=== PATIENT | male | born 1940 | race Caucasian/White ===

== ENCOUNTER → 2021-04-03 08:55 | Outpatient (CLI) | payer MEDICARE, SELFPAY ==
[2021-04-03 12:38] LABS: Absolute Lymphocyte Count 2.36 X10^3/uL (0.83-4.51); Absolute Neutrophil Count 4.9 X10^3/uL (2.0-7.7); Basophil# 0.03 X10^3/uL; Basophil% 0.4 % (0-1); Eosinophil# 0.07 X10^3/uL; Eosinophils% 0.9 % (0-5); Hematocrit 50.2 % (40-54); Hemoglobin 16.6 g/dL (13.0-16.5); Lymphocyte # 2.36 X10^3/ul (0.83-4.51); Lymphocyte % 29.9 % (19-41); Mean Corp Hgb Conc 33.1 g/dL (32-36); Mean Corpuscular Hgb 30.3 pg (27.0-32.0); Mean Corpuscular Volume 91.6 fL (80-94); Mean Platelet Vol. 9.2 fl (6.2-12.0); Monocyte# 0.52 X10^3/uL; Monocyte% 6.6 % (0-10); NRBC Flagged by Analyzer 0 % (0-5); Neutrophil % 61.9 % (47-70); Platelet Count 342 K/mm3 (150-450); RBC Distribution Width SD 40.9 fl (35.1-43.9); Red Blood Count 5.48 M/mm3 (4.6-6.2); White Blood Count 7.9 K/mm3 (4.4-11.0)
[2021-04-03 12:58] LABS: ALB/GLOB Ratio 0.9 RATIO (0.9-2.4); AST(SGOT) 12 U/L (15-37); Alanine Aminotransfer ALT/SGPT 23 U/L (16-61); Albumin, Serum 3.8 g/dL (3.2-5.0); Alkaline Phosphatase 69 U/L (45-117); Anion Gap 8 (5-15); BUN 20 mg/dL (7-18); BUN/Creat Ratio 16.8 RATIO (10-20); Chloride 97 mmol/L (98-107); Creatinine, Serum 1.19 mg/dL (0.70-1.30); EST Glomerular Filtration Rate 63 mL/min (>60); Est Glom Filt Rate - Afr Amer 76 mL/min (>60); Globulin 4.1 g/dL (2.2-4.2); Potassium 4.8 mmol/L (3.5-5.1); Protein, Total 7.9 g/dL (6.4-8.2); Sodium Level 133 mmol/L (136-145)
[2021-04-03 12:59] LABS: Glucose 483 mg/dL (74-106)
[2021-04-03 17:34] LABS: Microalbumin,Random Urine < 5.0 mg/L (NO RANGE EST.)
== END ==
PROVIDERS: Nurse Practitioner Family; PCP Family Medicine; Referring Provider Family Medicine; Visit Provider Family Medicine
DX: R63.4 Abnormal weight loss (principal); G89.29 Other chronic pain; M54.2 Cervicalgia; M54.9 Dorsalgia, unspecified; E11.9 Type 2 diabetes mellitus without complications
CPT/HCPCS: 36415; 80053; 82043; 82570; 85025

== ENCOUNTER → 2021-04-23 13:05 | Outpatient (CLI) | payer MEDICARE, SELFPAY ==
[2021-04-23 15:40] LABS: Microalbumin,Random Urine 13.4 mg/L (NO RANGE EST.)
[2021-04-23 15:47] LABS: Hemoglobin A1c 11.1 % (3.8-5.6)
[2021-04-23 15:55] LABS: ALB/GLOB Ratio 0.8 RATIO (0.9-2.4); AST(SGOT) 14 U/L (15-37); Alanine Aminotransfer ALT/SGPT 23 U/L (16-61); Albumin, Serum 3.5 g/dL (3.2-5.0); Alkaline Phosphatase 47 U/L (45-117); Anion Gap 6 (5-15); BUN 23 mg/dL (7-18); BUN/Creat Ratio 25.6 RATIO (10-20); CPK Total, Creatine Kinase 25 U/L (39-308); CRP < 2.90 mg/L (0.0-3.0); Calcium,Total 10.1 mg/dL (8.5-10.1); Chloride 101 mmol/L (98-107); EST Glomerular Filtration Rate 87 mL/min (>60); Est Glom Filt Rate - Afr Amer 105 mL/min (>60); Globulin 4.2 g/dL (2.2-4.2); Glucose 119 mg/dL (74-106); Lipase 71 U/L (73-393); PSA,Total- Diagnostic 1.12 ng/mL (0.0-4.0); Potassium 4.1 mmol/L (3.5-5.1); Protein, Total 7.7 g/dL (6.4-8.2); Sodium Level 137 mmol/L (136-145)
[2021-04-23 16:14] LABS: Erythrocyte Sedimentation Rate 15 mm/hr (0-20)
[2021-04-23 16:17] LABS: Absolute Neutrophil Count 4.4 X10^3/uL (2.0-7.7); Basophil# 0.03 X10^3/uL; Basophil% 0.4 % (0-1); Eosinophil# 0.04 X10^3/uL; Eosinophils% 0.5 % (0-5); Hematocrit 47.3 % (40-54); Hemoglobin 15.4 g/dL (13.0-16.5); Lymphocyte % 34.7 % (19-41); Mean Corp Hgb Conc 32.6 g/dL (32-36); Mean Corpuscular Hgb 29.8 pg (27.0-32.0); Mean Corpuscular Volume 91.5 fL (80-94); Mean Platelet Vol. 8.5 fl (6.2-12.0); Monocyte# 0.61 X10^3/uL; Monocyte% 7.8 % (0-10); NRBC Flagged by Analyzer 0 % (0-5); Neutrophil # 4.38 X10^3/uL (2.7-7.7); Neutrophil % 56.3 % (47-70); Platelet Count 356 K/mm3 (150-450); RBC Distribution Width SD 40.1 fl (35.1-43.9); Red Blood Count 5.17 M/mm3 (4.6-6.2); White Blood Count 7.8 K/mm3 (4.4-11.0)
[2021-04-24 09:45] LABS: PTHIN 41.5 pg/mL (18.4-80.1)
[2021-04-27 13:21] LABS: ANTINUCLEAR ANTIBODIES DIRECT Negative (Negative)
[2021-04-28 14:09] LABS: PROEL- A/G Ratio 1.2 (0.7-1.7); PROEL- Albumin 3.6 g/dL (2.9-4.4); PROEL- Alpha-1 Globulin 0.3 g/dL (0.0-0.4); PROEL- Alpha-2 Globulin 0.8 g/dL (0.4-1.0); PROEL- Beta Globulin 1.1 g/dL (0.7-1.3); PROEL- Gamma Globulin 0.9 g/dL (0.4-1.8); PROEL- Globulin, Total 3.1 g/dL (2.2-3.9); PROEL- TOTAL PROTEIN 6.7 g/dL (6.0-8.5); PROELU- Albumin, Urine 44.2 % (.); PROELU- Alpha-1-Globulin,Ur 0.5 % (.); PROELU- Alpha-2-Globulin,Ur 10.3 % (.); PROELU- Beta Globulin, Ur 23.6 % (.); PROELU- Gamma Globulin, Ur 21.5 % (.); Total Protein, Ur 9.1 mg/dL (Not Estab.)
== END ==
PROVIDERS: PCP Family Medicine; Referring Provider Family Medicine; Visit Provider Family Medicine
DX: R63.4 Abnormal weight loss (principal); M62.81 Muscle weakness (generalized); M54.9 Dorsalgia, unspecified; E11.9 Type 2 diabetes mellitus without complications
CPT/HCPCS: 36415; 80053; 82043; 82550; 83036; 83690; 83970; 84134; 84153; 84165; 84166; 85025; 85652; 86038; 86140

== ENCOUNTER 2021-05-19 09:00 | Outpatient (RCR) | payer MEDICARE, SELFPAY ==
--- NOTE | 2021-05-05 12:03 | HP.PTEVAL_ITS ---
Patient's Visit Information REENA QUINTANA is a 80 year old M referred to Physical Therapy by CASSIA TORIBIO with a diagnosis of LUMBAR DDD. Date of Evaluation: 05/05/21 Physical Therapist: Polly Valerio PT, Cert MDT - Visit Plan Frequency: 2-3x /Week Duration: 4-6 Weeks Plan: *FALL RISK*. POSTURE CORRECTION/STRENGTHENING, INSTRUCTION IN APPROPRIATE BODY MECHANICS AND ACTIVITY MODIFICATIONS. DLS STARTING WITH A NEUTRAL SPINE PROGRESSING ROM TOLERATED. ROE LE ROM, STRETCHING AND STRENGTHENING. HEP INSTRUCTION. - Subjective Work/Leisure: RETIRED X 26 YEARS. GOLFING 5 DAYS A WEEK. Disability: NO. Present symptoms: RIGHT HIP, THIGH, LEG, FOOT AND TOE PAIN, NUBNESS AND TINGLING. OCCASSIONAL PAIN ACROSS THE PELVIS. Present since: JAN 13 2021. Pain Scale: WORST 7/10, LEAST 4/10. Currently: 4/10. Commenced as a result of: GOLFING. Symptoms at onset: GOT OFF THE GOLF CART AND HAD EXCRUTIATING PAIN IN THE RIGHT HIP. Worse: PROLONGED SITTING, TRYING TO WALK, PUTTING WEIGHT ON RIGHT LE, 50 STEPS ON TREADMILL FOR ABOUT 10 MINUTES RIGHT KNEE GOT NUMB THEN WALKED STIFF LEGGED. LYING DOWN. ANY KIND OF ACTIVITY. TRYING TO GET SHOES AND SOCKS ON RIGHT FOOT, PUTTING LEG IN RIGHT PANT LEG, DIFFICUT TO GET IN AND OUT OF CAR, STEP (RANCH WITH BASEMENT). Better: NOTHING. Disturbed sleep: YES. Previous history/Previous treatment: DO MANIPULATIONS BY DR. JOSH AGUSTIN OFF AND ON NEEDED OVER THE LAST COUPLE YEARS. NO BACK OR HIP SURGERY. NO INJECTIONS. NO CHIROPRACTOR. NO PHYSICAL THERAPY. Treatment this episode: REPORTS TRYING [address] AGUSTIN SINCE ONSET IN JANUARY - DIDN'T HELP AND MAYBE MADE IT A LITTLE WORSE. TRIED MEDROL DOSE WILLI - DIDN'T HELP. Coughing/sneezing/straining: NEGATIVE. Gait: PATIENT REPORTS RIGHT LE GIVES OUT. HAS BEEN WALKING WITH WALKER FOR ABOUT 2 WKS NOW. Difficulty initiating urination: NO. DENIES LOSS OF BOWEL AND BLADDER CONTROL. Accidents: FALLS - SEE BELOW. ABOUT 4 FALLS ALL TOGETHER. Unexplained weight loss: NO. Imaging: PATIENT REPORTS RECENT X-RAY OF R KNEE IS OK AND MRI OF BACK SHOWS DEGENERATION OF SPINE AND NARROWING OF OPENING WHERE NERVES GO TO THE LEGS. X-RAYS WERE DONE AT [facility]. PMH: TYPE II DM DX'D 04/03/21. Recent major surgery: NO. PLOF (Prior Level of Function): UNLIMITED - 36 HOLES OF GOLF A DAY. OTHER: APR 16 2021 FELL MOWING LAWN WHEN RIGHT LEG GAVE OUT. RIGHT LEG WENT UNDERNEATH LEFT LEG AND NOW HAS TO BE VERY CAREFUL NOT TO FALL WHEN PUTTING WEIGHT ON RIGHT LE. 2 DAYS LATER WALKING WITHOUT AD IN BASEMENT AND RIGHT LEG KICKED OUT AND HE FELL. TWO DAYS LATER COULDN'T WALK AT ALL WITHOUT WALKER. HAD X-RAYS AFTER FALLS. NO FALLS SINCE THE X-RAYS. OTHER: REFERRED TO DR. GODFREY FOR EMG BY DR. TORIBIO - HAS NOT HEARD BACK FOR THIS PING'T YET. DX'D BY ENDROCRINOLOGIST WITH DM. GIVEN KNEE BRACE BY DR. TORIBIO BUT ILL FITTING AND NOT PLANNING TO GET ANOTHER ONE. OTHER: PATIENT REPORTS HE THOUGHT SURGERY WAS GOING TO BE RECOMMENDED AND HE WANTED SURGERY TO BE ABLE TO WALK AGAIN. REPORTS NEW DM DIAGNOSIS HAS COMPLICATED TREATMENT OPTIONS AND DIAGNOSIS OF RIGHT LE SX'S. PATIENT REPORTS HE DIDN'T HAVE KNEE PAIN UNTIL ORTHO EXAM OF KNEE AND HE WAS REALLY UPSET ABOUT THE EXAM. GIVEN LEG BRACE FROM ANKLE TO GROIN BUT ILL FITTING AND LEG WAS VERY PAINFUL AFTER FIRST USE. PATIENT REPORTS DR. TORIBIO REALLY MESSED UP HIS KNEE AND HE IS VERY UPSET ABOUT IT. May PING'T FOR SECOND OPINION FOR DM. IN THE PROCESS OF CHANGING DR'S FROM DR. AGUSTIN TO DR. BOUBACAR MURILLO. May PING'T WITH DR. MURILLO. STATES THEY ARE NOT PLANNING TO PURSUE PING'T WITH DR. GODFREY. - Objective Sitting/Standing Posture: POOR. Lordosis: REDUCED. Lateral shift: NO. Relevant shift: N/A. Active Correction of posture: NE. Other Observations: THIS PATIENT AMBULATES INDEP'LY INTO PT WITH A FWW. HIS RIGHT LE GAVE OUT ON HIM WALKING IN AND HE CAUGHT HIMSELF AND KEPT HIMSELF FROM FALLING. PATIENT REPORTS THIS HAS BEEN HAPPENING. Motor deficit: LLE: HIP 4/5, KNEE 5/5, ANKLE 5/5. ROM deficit: TIGHT REO HIP FLEXORS, HS'S AND GASTROC-SOLEUS COMPLEX'S. Dural Signs: POSITIVE RIGHT LE. Lumbar mvmt loss: flex - MIN. ext - ENDER. R SG - ENDER. L SG - ENDER. PATIENT DENIED INCREASED PAIN WITH LUMBAR ROM TESTING BUT EXT AND ROE SG IS VERY RESTRICTED. Core strength: POOR. Palpation: NO ACUTE LOWER THORACIC, LUMBAR, PELVIC OR HIP TENDERNESS. TREATMENT: NEUROMUSCULAR REEDUCATION - RETRAINING OF MVMT AND POSTURE FOR SITTING, LYING AND STANDING ACTIVITIES. ENCOURAGED PATIENT TO USE WALKER AT ALL TIMES FOR SAFETY. PATIENT AWARE OF HIGH FALL RISK DUE TO RIGHT LE WEAKNESS AND HISTORY OF FALLS. - Balance/Special Test Scores Oswestry Low Back Score: 13 - Goals Goal 1:: DECREASE C/O RIGHT LE SX'S. Goal Time Frame: 4-6 Weeks Goal 2:: IMPROVE STANDING, WALKING, ADL, SLEEP AND RECREATIONAL FUNCTION. Goal Time Frame: 4-6 Weeks Goal 3:: INSTRUCT IN PROPHYLAXIS Goal Time Frame: 4-6 Weeks - Anticipated Interventions Patient/Client Instruction: Educate patient on: Condition, Plan of Care, Risk Factors For the Purpose of:: To improve self management Therapeutic Exercise to Include: Strength training, Body mechanics, Postural training, Flexibilty training, Neuromotor development, In an aquatic setting, Dynamic Lumbar Stabilization For the Purpose of:: To decrease pain, To improve muscle performance and motor function, To increase tolerance to activity/condition/position, To improve ability of physical actions for home/community/work/leisure Thank you for the opportunity to evaluate your patient. For Medicare and Medicare HMO plans, please review the plan of care and approve it. It will need to be FAXED BACK to us at [phone] for Medicare purposes. For Medicare only, by signing this I certify the plan of care. Please let me know if there are questions or concerns regarding this plan of care. Physician Sig nature: Date:
--- NOTE | 2021-05-25 15:52 | HP.PT.NRP ---
REENA QUINTANA was seen in my office for initial evaluation on 05/05/21. The following Plan of Care was established for this patient: Initial Frequency: 2-3x /Week Initial Duration: 4-6 Weeks Patient/Client Instruction: Educate patient on: Condition, Plan of Care, Risk Factors For the Purpose of:: To improve self management Therapeutic Exercise to Include: Strength training, Body mechanics, Postural training, Flexibilty training, Neuromotor development, In an aquatic setting, Dynamic Lumbar Stabilization For the Purpose of:: To decrease pain, To improve muscle performance and motor function, To increase tolerance to activity/condition/position, To improve ability of physical actions for home/community/work/leisure This patient was last seen in our office . Pertinent comments regarding their Physical therapy will appear below: THIS PT RECIEVED A PHONE MESSAGE STATING EMG SHOWED A LOT OF NERVE DAMAGE THERFORE CANCELLED ALL PT PING'TS. THIS PT CALLED AND SPOKE TO PATIENT. PATIENT REPORTS HE HAD AN EMG AT [facility] SHOWING 60-70% NERVE DAMGE IN HIS LEG AND WAS TOLD PT WILL NOT HELP. REPORTS THEY CAN NOT PIN DOWN THE CAUSE. REPORTS HE IS TRYING TO FIND A NEUROLOGIST IN HIS PLAN THAT DEALS WITH THIS KIND OF THING. WILL D/C CHART AT THIS TIME BUT WE WOULD BE HAPPY TO RESUME PT IN THE FUTURE IF INDICATED. At this point I will be discontinuing this patient from physical therapy. I would be happy to see this patient again in the future if found appropriate by the physician. Thank you! Polly Valerio, PT, Cert MDT Balance/Gait/Functional tests - Balance/Special Test Scores Oswestry Low Back Score: 13
== END 2021-05-19 19:00 | disposition home or self-care (01) ==
LOC: PT 09:00
PROVIDERS: PCP Family Medicine
DX: M51.36 Other intervertebral disc degeneration, lumbar region (principal); M48.07 Spinal stenosis, lumbosacral region; M54.59 Other low back pain
CPT/HCPCS: 97112; 97162; 97530

== ENCOUNTER → 2021-06-19 11:07 | Outpatient (CLI) | payer MEDICARE, SELFPAY ==
[2021-06-19 12:33] LABS: PTHIN 43.5 pg/mL (18.4-80.1)
[2021-06-19 13:16] LABS: Vitamin D,25 Hydroxy 68.8 ng/mL
[2021-06-19 13:20] LABS: ALB/GLOB Ratio 0.8 RATIO (0.9-2.4); AST(SGOT) 13 U/L (15-37); Alanine Aminotransfer ALT/SGPT 20 U/L (16-61); Albumin, Serum 3.2 g/dL (3.2-5.0); Alkaline Phosphatase 50 U/L (45-117); Anion Gap 5 (5-15); BUN 25 mg/dL (7-18); BUN/Creat Ratio 25.1 RATIO (10-20); Chloride 104 mmol/L (98-107); EST Glomerular Filtration Rate 77 mL/min (>60); Est Glom Filt Rate - Afr Amer 93 mL/min (>60); Globulin 3.9 g/dL (2.2-4.2); Glucose 130 mg/dL (74-106); Potassium 4.2 mmol/L (3.5-5.1); Protein, Total 7.1 g/dL (6.4-8.2); Sodium Level 139 mmol/L (136-145)
== END ==
PROVIDERS: PCP Family Medicine
DX: E83.52 Hypercalcemia (principal); E55.9 Vitamin D deficiency, unspecified
CPT/HCPCS: 36415; 80053; 82306; 83970

== ENCOUNTER 2021-07-01 11:08 | Outpatient (CLI) | payer MEDICARE, SELFPAY ==
[2021-07-01 15:53] LABS: ALB/GLOB Ratio 0.9 RATIO (0.9-2.4); AST(SGOT) 11 U/L (15-37); Alanine Aminotransfer ALT/SGPT 26 U/L (16-61); Albumin, Serum 3.4 g/dL (3.2-5.0); Alkaline Phosphatase 57 U/L (45-117); Anion Gap 5 (5-15); BUN 27 mg/dL (7-18); BUN/Creat Ratio 28.9 RATIO (10-20); CPK Total, Creatine Kinase 19 U/L (39-308); Calcium,Total 9.9 mg/dL (8.5-10.1); Chloride 101 mmol/L (98-107); Creatinine, Serum 0.93 mg/dL (0.70-1.30); EST Glomerular Filtration Rate 83 mL/min (>60); Est Glom Filt Rate - Afr Amer 100 mL/min (>60); Globulin 3.7 g/dL (2.2-4.2); Glucose 121 mg/dL (74-106); Potassium 4.2 mmol/L (3.5-5.1); Protein, Total 7.1 g/dL (6.4-8.2); Sodium Level 136 mmol/L (136-145)
== END 2021-07-01 23:59 | disposition short-term general hospital (02) ==
LOC: MTLAB 11:09
PROVIDERS: PCP Family Medicine; Referring Provider Internal Medicine Endocrinology, Diabetes & Metabolism; Visit Provider Internal Medicine Endocrinology, Diabetes & Metabolism
DX: R25.2 Cramp and spasm (principal); E78.2 Mixed hyperlipidemia
CPT/HCPCS: 36415; 80053; 82550

== ENCOUNTER 2021-07-09 12:58 | Outpatient (RCR) | payer MEDICARE, SELFPAY ==
--- NOTE | 2021-07-17 15:11 | HP.PTDCSUM ---
It has been my pleasure to treat REENA QUINTANA referred by Dr. Jose Angel Cesar MD, with the diagnosis of R quad weakness and mononeuropathy. for a total of 1 visit(s). Discharge Date: Please see the following information for a summary of their discharge status. Right Lower Extremity Pain Intensity (Out of 10): 2 Goal 1:: Refer to neurologist ...had previousl;y had a neurologist scheduled in 6 months. Goal 2:: Contact the estim rep to see if NMES functional electrical stim would be helpful Goal 3:: Reviewed results of EMG and MRI with patient told patient will show Dr bassett. Said sae to get actual disc not report. Goal 4:: Continue with light strengthen add min dips at sink Goal 5:: Advised to get straight leg brace to prevent falling [employer] and [employer] are options Plan: FU in one week with call to patient If there are questions or concerns regarding this patient's physical therapy, please feel free to call me at [phone]. Thank you for the referral of this patient. Sincerely, Javier Green, PT, SHAKIR, SCS, CSCS Balance/Gait/Functional tests - Balance/Special Test Scores Lower Extremity Functional Score: 15
== END 2021-07-09 19:00 | disposition home or self-care (01) ==
LOC: PT 12:58
PROVIDERS: PCP Family Medicine; Visit Provider Family Medicine
DX: G57.91 Unspecified mononeuropathy of right lower limb (principal)
CPT/HCPCS: 97014; 97163; G0283

== ENCOUNTER 2021-08-07 09:01 | Outpatient (CLI) | payer MEDICARE, SELFPAY ==
[2021-08-07 10:35] LABS: CRP < 2.90 mg/L (0.0-3.0)
[2021-08-07 10:54] LABS: Vitamin B12 775 pg/mL (211-911)
[2021-08-11 15:08] LABS: PROELU- Albumin, Urine 63.6 % (.); PROELU- Alpha-1-Globulin,Ur 4.2 % (.); PROELU- Alpha-2-Globulin,Ur 9.7 % (.); PROELU- Beta Globulin, Ur 15.7 % (.); PROELU- Gamma Globulin, Ur 6.8 % (.); Total Protein, Ur 13.6 mg/dL (Not Estab.)
[2021-08-12 13:25] LABS: Arsenic 7245 1 ug/L (0-9); Lead, Blood 1 ug/dL (0-4)
[2021-08-12 13:26] LABS: Mercury, Blood 85324 1.2 ug/L (0.0-14.9)
== END 2021-08-07 23:59 | disposition home or self-care (01) ==
PROVIDERS: PCP Family Medicine; Referring Provider Psychiatry & Neurology Neurology; Visit Provider Psychiatry & Neurology Neurology
DX: G62.9 Polyneuropathy, unspecified (principal)
CPT/HCPCS: 36415; 82175; 82607; 83655; 83825; 84166; 86140

== ENCOUNTER 2021-08-11 12:19 | Outpatient (CLI) | payer MEDICARE, SELFPAY ==
--- NOTE | 2021-08-11 12:22 | RAD_ITS ---
PROCEDURE: Fluoroscopic guided Lumbar Puncture. DATE: 08/11/2021. CLINICAL INDICATION: Neuropathy. PHYSICIAN: Stiven Reinoso M.D. MEDICATIONS: 1% lidocaine administered subcutaneously for local anesthesia. ACCESS SITE: Lower posterior back. NEEDLE: 22-gauge spinal needle. SPECIMEN: Approximately 12 mL clear]CSF fluid. FLUOROSCOPY TIME (if supplied): (1:07) minutes/seconds COMPLICATIONS: None immediate. The risks, benefits, and alternatives to the procedure were explained to the patient. The specific risks of bleeding, infection, and neurovascular injury were detailed and accepted. Witnessed informed consent was obtained. The patient was placed on the fluoroscopic table in the prone position. The level for needle entry was determined and marked. The overlying skin was cleaned and prepped in the usual sterile fashion. 2% lidocaine was administered subcutaneously for local anesthesia. Under fluoroscopic guidance a 22-gauge spinal needle was advanced. The thecal sac was entered at the L3- L4 vertebral level. The inner stylet was removed. There was spontaneous flow of clear CSF fluid. The patient was placed in a reversed Trendelenburg position. Approximately 12 mL of cerebrospinal fluid was collected using gravity. The specimen was collected and submitted to the laboratory for further evaluation. The needle was withdrawn,. Hemostasis was achieved and a sterile dressing placed. The patient tolerated the procedure well without any immediate complications. The patient was placed supine with head elevated and returned to the floor in stable condition. RAD/Dx Lumbar Puncture w/IMG Guide IMPRESSION: Successful fluoroscopic-guided lumbar puncture. Electronically Signed: Stiven Reinoso MD at 14:34 EST ,
[2021-08-11 12:48] VITALS: BP 141/65; PULSE 58; RESP 14; TEMP 36.7; O2SAT 100; BMI 21.2
--- NOTE | 2021-08-11 13:15 | CASEMGMT ---
AMEYA DUBON Face to Face with patient for initial care coordination assessment. RN JAGDISH introduced self and role at [facility]. Patient lying in bed, alert and oriented, and daughter at bedside. Patient willing to participate in assessment and is able to answer all questions appropriately. Care providers, pharmacy, and demographics verified. Patient and family concerned regarding patient's mobility and difficulty getting to appointments. Patient and family voicing frustration about not getting answers to what is causing patient's nerve damage. CM provided emotional support and resources. RN JAGDISH told patient and that this RN CM will make follow-up when new referral for nutritional services received and arranged by PCP. Patient and voiced understanding and had no further question or concerns at this time. PCP: Jose Angel Cesar Specialists:Alyx, neurologist; Bigg Gonzalez, Supervisor Type Bar And Segment Preferred Pharmacy: [facility] Insurance: [employer]. Prescription Benefit: yes Living Will/HPOA: yes, Carmen Montez LNOK: , daughter Living Arrangements: patient currently resides in a single story home with 2 steps and railing to enter the home. Patient is independent for toileting and dressing, assists with bathing. Patient has small bathrooms and has difficultly bathing in shower and has been taking sponge bath at home. Per patient and , patient is still able to ambulate in the home. Transportation: , daughter DME/HHC: Patient has walker and rollator at home, as well as high toilets. No previous HHC or SNF. and patient declining needs at this time. Resource provided including [facility] list of in-network agencies, [facility], [facility] HHC services, [facility] nutritional services. voiced concerns regarding patient's weight loss and wanting some nutritional support. AMEYA DUBON spoke with Dry Box Operator Christel regarding possible one on one visit with patient and instead of diabetic classes. Also discussed possible option of home visit. Per Christel, patient needs new referral which indicates that patient is not appropriate for group classes. Christel states that once referral received from PCP, she will call to discuss options. AMEYA DUBON received [facility] nutritional services order form. AMEYA DUBON called and spoke to Gabi MILLER at Dr. Jose Angel Ayers order to discuss new nutritional referral at [facility]. AMEYA DUBON faxed order to Dr. Cesar's office and requested call back when order received. CM will continue to follow this patient and assist with care coordination. Asha VILLAREALN, RN, CM
[2021-08-11] MEDS: Lidocaine 2% (5ml sdv) 5 ML VIAL.MPF INFILT (13:48)
[2021-08-11 14:10] VITALS: BP 178/69; PULSE 58; RESP 16; O2SAT 99
[2021-08-11 14:30] VITALS: BP 161/71; PULSE 63; RESP 16; O2SAT 100
[2021-08-11 14:45] VITALS: BP 170/69; PULSE 57; RESP 16; O2SAT 100
[2021-08-11 15:00] VITALS: BP 177/68; PULSE 58; RESP 16; O2SAT 100
[2021-08-11 15:10] LABS: Glucose Spinal Fluid 66 mg/dL (40-75)
[2021-08-11 15:18] LABS: Body Fluid Mononuclear WBC # 0.001 10^3/uL
[2021-08-11 15:23] LABS: Auto B Fluid Analyzer BKGD Ct COUNTS W/IN LIMITS (W/IN LIMITS)
[2021-08-11 15:24] LABS: Appearance CSF (character) CLEAR (Clear); CSF Color COLORLESS (Colorless); Tested Tube # 3
[2021-08-11 17:16] LABS: RBC Count, Spinal Fluid 0 /mm-3 (None seen)
[2021-08-11 17:26] LABS: Body Fluid QC Type(s) BF1Q,BF2Q
[2021-08-12 07:04] LABS: White Count, CSF 1 /mm-3 (0 - 5)
--- NOTE | 2021-08-13 16:05 | CASEMGMT ---
RN CM received message from Carmen requesting call back. RN CM called back. inquiring on status of motorcycle fabricator consult for DM clinic. RN JAGDISH updated Carmen that we received the order from Dr. Cesar and was given to Christel motorcycle fabricator. Per Christel she will be following up with Carmen to discuss best options for consult. also inquired about possible HHC and DME in the future. RN CM explained that patient's PCP would need to order that. RN CM encourage to call and update PCP regarding patients condition. voiced understanding. RN CM updated that this RN CM will be following up with her on Tuesday. voiced understanding and had no further questions or concerns.
[2021-08-14 09:07] LABS: Pathologist Review Reviewed
[2021-08-14 17:07] LABS: Cryptococcus Antigen CSF Negative (Negative)
--- NOTE | 2021-08-18 14:53 | CASEMGMT ---
AMEYA DUBON called to follow-up with . No answer, voice message left with return contact information.
--- NOTE | 2021-08-18 15:30 | CASEMGMT ---
AMEYA DUBON received callback from Carmen. Carmen stated that Dr. Cesar's office had ordered someone to come out and evaluate patient for inpatient rehab. AMEYA DUBON explained to Carmen what inpatient rehab is and she stated that that was not what she wanted. She would like patient to stay home and get therapy. Carmen also inquiring about status of dietary home visit. AMEYA DUBON explained to Carmen that this AMEYA DUBON will call and clarify with HHC, inpatient rehab, and dietary and follow-up with her in the morning. AMEYA DUBON called Gabby at inpatient rehab and she did not have any referral for patient. AMEYA DUBON called [facility] and spoke with Natalya, who verified that they did receive order to eval for inpatient rehab but then clarified with PCP office that they are not able to eval for rehab unit in the home and received order for PT/OT to eval and treat in the home. Natalya stated that she will be calling patient later in the week and anticipate seeing the patient Tuesday or Tuesday. AMEYA DUBON will follow-up with lilian and Carmen in am.
--- NOTE | 2021-08-19 09:55 | CASEMGMT ---
AMEYA DUBON called and to Luly in dietary to check on status of referral. Luly inquired if patient was going to be seen by C. AMEYA DUBON updated Luly that [facility] scheduled to see patient next Tuesday or Tuesday. Luly stated that since HHC is going to see patient, they should be able to see the patient in the home next Tuesday or . Luly stated that she will be calling Carmen at the beginning of the week. AMEYA DUBON called and updated Carmen regarding [facility] HHC and [facility] Dietary referrals. Carmen voiced understanding. Patient see Dr. Wisdom on 08/24/21 @ [id number]. AMEYA DUBON updated that this RN CM will be following up again next week to see how referral went. Carmen voice appreciation and understanding. Carmen had no further questions or concerns at this time. CM will continue to follow this patient and assist with care coordination.
--- NOTE | 2021-08-27 15:45 | CASEMGMT ---
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 Patient continues to have increased weakness and Carmen wanting additional help in the home. AMEYA DUBON adding SN, RECORD CUTTER, and SW to [facility]. agreeable. AMEYA DUBON called [facility] intake liaison Polly requesting additional services to be added. Polly said she would contact PCP for updated order. AMEYA DUBON requesting call back follow up for progress with additional services being added. CM will continue to follow this patient and coordinate care as appropriate.
== END 2021-08-11 23:59 | disposition home or self-care (01) ==
PROVIDERS: PCP Family Medicine; Referring Provider Psychiatry & Neurology Neurology; Visit Provider Psychiatry & Neurology Neurology
DX: G62.9 Polyneuropathy, unspecified (principal)
CPT/HCPCS: 62328; 82945; 84157; 87899; 89050; 89051

== ENCOUNTER 2021-08-26 08:23 | Outpatient (RCR) | payer MEDICARE, SELFPAY | END 2021-09-10 23:59 | LOC: DC 08:23 | PROVIDERS: PCP Family Medicine; Visit Provider Family Medicine | DX: E11.9 Type 2 diabetes mellitus without complications (principal) | CPT/HCPCS: 97802 ==

== ENCOUNTER 2021-09-01 10:54 | Observation (INO) | payer MEDICARE, SELFPAY ==
[2021-09-01 10:54] VITALS: BP 137/68; PULSE 58; RESP 16; O2SAT 100
[2021-09-01 10:55] VITALS: BP 159/63; PULSE 62; RESP 16; TEMP 36.9; O2SAT 100; BMI 22.8
--- NOTE | 2021-09-01 11:42 | ED.VIS.FALL ---
HPI HPI - Fall History of Present Illness Chief Complaint: Fall Narrative Narrative: Patient presents with his family because of frequent falls. He is a 80-year-old male, recently diagnosed by his neurologist, Dr. Wisdom, with chronic inflammatory demyelinating disease. He states he has had 17-20 fall since April, but his daughter and state that he has had 4 falls within the last week. He states he usually falls onto his hip, but he is having problems with generalized weakness and weakness of his lower extremities and recently fell onto his knees. He has had swelling of his right knee more so than his left for weeks to months. He states that he is supposed to start treatment for his CI DD with IVIG infusions, but have not started them as of yet. Additionally, he states that he does not want to travel all the way to [place] to have his infusions and wants them here. He does not have home health care. states that he had a PT evaluation last week and they signed off. Patient's family state that they are having a harder time assisting him because of his weakness and that he has been falling more often. Patient denies any head injury. He states he thinks he may have stretched ligaments on his bilateral knees. He complains of a generalized weakness. No fevers or chills. No dysuria or other symptoms. [facility] Medical History Chronic inflammatory demyelinating polyneuritis Chronic neck and back pain Diabetes History of skin cancer Home Medications aspirin 81 mg tablet,delayed release 81 mg PO BID tab 08/16/19 [History Last Taken Unknown] flash glucose sensor #6 ea 04/03/21 [Rx Last Taken Unknown] pen needle, diabetic 32 gauge x #400 ea 04/03/21 [Rx Last Taken Unknown] blood sugar diagnostic #100 ea 04/19/21 [Rx Last Taken Unknown] lancets 33 gauge #100 ea 04/19/21 [Rx Last Taken Unknown] gabapentin 600 mg PO QHS 08/11/21 [History Last Taken Unknown] insulin aspart U-100 [Novolog Flexpen U-100 Insulin] 7 unit SUBCUT TID 08/11/21 [History Last Taken Unknown] insulin glargine [Lantus Solostar U-100 Insulin] 16 unit SUBCUT DAILY 08/11/21 [History Last Taken Unknown] magnesium oxide 800 mg PO BID 08/11/21 [History Last Taken Unknown] Allergy/AdvReac Type Severity Reaction Status Date / Time No Known Allergies Allergy Verified 08/11/21 12:45 Surgical History History of vasectomy Social History Smoking Status: Never smoker alcohol intake: never substance use type: does not use what type of physical activity do you participate in: weight training and other details: Golf frequency: 5-6 times per week ROS ROS ED ROS Narrative Constitutional: No fever, no chills. Frequent falls. HEENT: No sore throat. No neck pain. No loss of vision. No rhinorrhea. Cardiovascular: No chest pain. No palpitations. No pedal edema. Respiratory: No cough, no shortness of breath. Abdominal: No abdominal pain. No nausea. No vomiting. Genitourinary: No dysuria. No hematuria. Musculoskeletal: No myalgias. No arthralgias. Weakness of bilateral lower extremities. Bilateral knee pain. Right knee swelling greater than left. Neurologic: No headaches. No dizziness. No lightheadedness. Skin: No rash. No change in color. Psychiatric: No depression. No anxiety. EXAM Physical Exam Narrative Exam Narrative: Afebrile. Vital signs noted. HEENT: Normocephalic. Atraumatic. PERRL, EOMI. Neck soft and supple. No point tenderness or step off. Cardiovascular: Regular rate and rhythm. No murmurs, rubs, or gallops appreciated. Respiratory: No tachypnea. Lungs clear to auscultation bilaterally. Gastrointestinal: Abdomen soft, nontender, with normoactive bowel sounds. No rebound or guarding. Neurological: Awake. Alert. Nonfocal, nonlateralizing. Skin: No rash. Normal color. No pallor. Musculoskeletal: No pedal edema. Noted weakness of bilateral lower extremities. Flexion and extension mechanisms are intact. Mild diffuse swelling of right knee. No noted erythema. Palpable dorsalis pedis pulses bilaterally.. Const Vital Signs: 09/01/21 10:54 09/01/21 10:55 09/01/21 11:03 Temperature 98.5 F Temperature Source Oral Pulse Rate 58 L 62 Respiratory Rate 16 16 Respiratory Effort Normal Non-Labored Respiratory Depth Normal Respiratory Pattern Normal Blood Pressure 137/68 H 159/63 H Blood Pressure Mean 91 95 Pulse Ox 100 100 Oxygen Delivery Method Room Air Room Air Room Air 09/01/21 13:14 Temperature Temperature Source Pulse Rate 53 L Respiratory Rate 16 Respiratory Effort Respiratory Depth Respiratory Pattern Blood Pressure 129/60 H Blood Pressure Mean 83 Pulse Ox 97 Oxygen Delivery Method Room Air MDM MDM MDM Narrative Medical decision making narrative: Patient does have history of diabetes. I had a lengthy discussion with the patient, his and daughter. His and daughter states that they need assistance and would like home health care as they are having problems with him transferring and getting in and out of bed. Patient CBC is grossly normal except for hemoglobin slightly low at 12.5, normal platelet count of 375. He has mild hyponatremia of 132 with a creatinine of 0.64. Urinalysis shows no evidence of infection or ketones. X-rays of the bilateral knees shows a large right knee effusion. Radiology cannot rule out nondisplaced fracture of the patella. However, patient declines any further imaging and states his knee has been swollen for quite some time, and he does not want a knee immobilizer. The director of social services and I both had lengthy discussions with the patient and his family. He feels that he needs further upper body strength because he feels weak to help with his assistive devices. He is agreeable to be admitted to the hospital for placement in either rehab facility or prison. I do not feel that it is safe to discharge him home. Furthermore, they state that they do not have a hospital bed or other things ready for him to come home, although they prefer him at home. I discussed the patient with Dr. Ramirez for observation for placement for rehabilitation and PT/OT. Patient is in stable condition. Lab Data Attestation: I reviewed the patient's lab results. Labs: Laboratory Results - last 24 hr 09/01/21 09/01/21 09/01/21 12:28 12:28 12:42 WBC 7.1 RBC 3.93 L Hgb 12.5 L Hct 34.9 L MCV 88.8 MCH 31.8 MCHC 35.8 RDW Std Deviation 39.7 RDW Coeff of Skinny 12.0 Plt Count 375 MPV 7.9 Immature Gran % (Auto) 0.400 Neut % (Auto) 66.3 Lymph % (Auto) 23.5 [place] % (Auto) 8.7 Eos % (Auto) 0.7 Baso % (Auto) 0.4 Absolute Neuts (auto) 4.7 Absolute Lymphs (auto) 1.67 Nucleated RBC % 0 Sodium 132 L Potassium 4.2 Chloride 100 Carbon Dioxide 29.0 Anion Gap 3 L BUN 18 Creatinine 0.64 L Estim Creat Clear Calc 63.03 Est GFR (MDRD) Af Amer 154 Est GFR (MDRD) Non-Af 128 BUN/Creatinine Ratio 28.0 H Glucose 140 H Calcium 9.3 Total Bilirubin 0.40 AST 9 L ALT 21 Alkaline Phosphatase 56 Total Protein 6.3 L Albumin 2.6 L Globulin 3.7 Albumin/Globulin Ratio 0.7 L Urine Color Yellow Urine Clarity Sl. Cloudy Urine pH 7.0 Ur Specific [place] 1.010 Urine Protein Negative Urine Glucose (UA) Normal Urine Ketones Negative Urine Occult Blood Negative Urine Nitrite Negative Urine Bilirubin Negative Urine Urobilinogen Normal Ur Leukocyte Esterase Negative Urine RBC 0 SEEN Urine WBC 0 SEEN Ur Squamous Epith Cells 0 SEEN Urine Bacteria 0 SEEN Urine Mucus 0 SEEN Radiography Diagnostic Testing: Clinical Impression(s) from Imaging Studies Knee X-Ray 09/01/21 12:16 IMPRESSION: Negative left knee x-rays. at 1309 Reported and signed by: George Camarillo MD Electronically Signed: George Camarillo MD at 13:08 EDT , Knee X-Ray 09/01/21 12:22 IMPRESSION: Moderate size joint effusion with prepatellar soft tissue swelling. Heterogeneous appearance of the patella. I cannot exclude a nondisplaced patellar fracture. Electronically Signed: Stiven Reinoso MD at 12:49 EDT , Discharge Plan Dx/Rx/DC Orders Clinical Impression: Frequent falls, Chronic inflammatory demyelinating polyneuropathy, Inability to walk, Weakness Disposition Disposition: Acute Care Hospital [facility]
--- NOTE | 2021-09-01 11:43 | NURSING ---
family reported that increasingly diff to care for pt without help at home. sully ahmadi consulted for poss home set up and or placement
--- NOTE | 2021-09-01 12:16 | RAD_ITS ---
EXAM: XR LEFT KNEE, 3 VIEWS : 1940 CLINICAL INDICATION: Pain after fall TECHNIQUE: Three views of the left knee. This report was created using [employer] report generation technology. COMPARISON: None. FINDINGS: BONES/JOINTS: Unremarkable. No acute fracture. No subluxation. Normal alignment. Preservation of the joint space. No sclerotic or destructive changes observed. SOFT TISSUES: Unremarkable. No soft tissue swelling or gas. No radiopaque foreign body. RAD/Knee 3 Views IMPRESSION: Negative left knee x-rays. at 1309 Reported and signed by: George Camarillo MD Electronically Signed: George Camarillo MD at 13:08 EDT ,
--- NOTE | 2021-09-01 12:22 | RAD_ITS ---
STUDY: X-RAY - RIGHT KNEE REASON FOR EXAM: Male, 80 years old. PAIN AFTER FALL TECHNIQUE: 3 view(s) of the knee. COMPARISON: None. FINDINGS: Normal visualized distal femur. Normal visualized proximal tibia and fibula. Normal proximal tibiofibular articulation. Normal medial femorotibial compartment. Normal lateral femorotibial compartment. Normal patellofemoral articulation. Heterogeneous appearance of the patella. I cannot exclude a nondisplaced patellar fracture. Moderate size joint effusion. Prepatellar soft tissue swelling. RAD/Knee 3 Views IMPRESSION: Moderate size joint effusion with prepatellar soft tissue swelling. Heterogeneous appearance of the patella. I cannot exclude a nondisplaced patellar fracture. Electronically Signed: Stiven Reinoso MD at 12:49 EDT ,
--- NOTE | 2021-09-01 12:31 | CM.ED ---
Social Work Consult: Discharge Planning/resources Referral source: Dr. Alvarado Met with patient, patient spouse, Carmen and patient daughter, Sania in room. Introduced self and health care social worker role. Patient and patient family agreeable to speak with this health care social worker. Patient appears to be sleeping in bed during majority of conversation and did not engage in conversation. Carmen and Sania voicing multiple concerns about patient in the community and being able to care for patient. Carmen reports that patient has fallen four times in the last few weeks and is not able to walk. Patient recently diagnosed with Chronic Inflammatory Demyelinating Polyneuropathy (CIDP) and it has been progressing quickly. Carmen concerned about being able to care for patient. Patient is currently wishing to return to home. Carmen reports that patient has a walker, wheelchair, ramp and transfer board. Sania reports to have access to a hospital bed for patient, but over all concern is being able to meet patient care needs in the home. Patient to begin infusion therapy through Dr. Wisdom (neurologist) office sometime. Sania reports to have called Dr. Wisdom's office four times yesterday and we still don't have answers. Patient and patient family are agreeable to this health care social worker calling Dr. Wisdom's office to inquire about status of infusion therapy for patient. This health care social worker broached topic of correction placement, patient and patient family undecided about this and plan to talk further in the ED about this. This health care social worker to follow up with patient in room after speaking with Dr. Alvarado. Patient did have home health care but per Carmen did not meet skilled need and was discharged from home health. Appears to be [facility]. Telephone call to Dr. Wisdom, neurologist office. This health care social worker spoke with a member of the clinical staff. Per the clinical staff the infusion nurse is who coordinates care of infusion therapy and the infusion nurse will not be in again until tomorrow. Per the clinical staff there is a message out to the infusion nurse to call the family tomorrow. Updated DR. Alvarado on above. Will continue to follow. Bry UMANA, KEVIN
[2021-09-01 12:36] LABS: Absolute Lymphocyte Count 1.67 X10^3/uL (0.83-4.51); Absolute Neutrophil Count 4.7 X10^3/uL (2.0-7.7); Basophil# 0.03 X10^3/uL; Basophil% 0.4 % (0-1); Eosinophil# 0.05 X10^3/uL; Eosinophils% 0.7 % (0-5); Hematocrit 34.9 % (40-54); Hemoglobin 12.5 g/dL (13.0-16.5); Lymphocyte # 1.67 X10^3/ul (0.83-4.51); Lymphocyte % 23.5 % (19-41); Mean Corp Hgb Conc 35.8 g/dL (32-36); Mean Corpuscular Hgb 31.8 pg (27.0-32.0); Mean Corpuscular Volume 88.8 fL (80-94); Mean Platelet Vol. 7.9 fl (6.2-12.0); Monocyte# 0.62 X10^3/uL; Monocyte% 8.7 % (0-10); NRBC Flagged by Analyzer 0 % (0-5); Neutrophil # 4.71 X10^3/uL (2.7-7.7); Neutrophil % 66.3 % (47-70); Platelet Count 375 K/mm3 (150-450); RBC Distribution Width SD 39.7 fl (35.1-43.9); Red Blood Count 3.93 M/mm3 (4.6-6.2); White Blood Count 7.1 K/mm3 (4.4-11.0)
[2021-09-01 12:49] LABS: Bacteria 0 SEEN /hpf (None Seen); Mucous, Urine 0 SEEN /hpf (<or=2+); Red Blood Cells-Urine 0 SEEN /hpf (0-5); White Blood Cells 0 SEEN /hpf (0-5)
[2021-09-01 12:50] LABS: Color, Urine Yellow (Yellow); Glucose, Dipstick Normal (Normal); Ketone-Dipstick Negative (Negative); Leukocyte Esterase-Dipstick Negative /ul (Negative); Nitrite-Dipstick Negative (Negative); Occult Blood-Urine Negative /ul (Negative); Protein-Dipstick Negative (Negative); Urine Bilirubin Dipstick Negative (Negative); Urine Clarity Sl. Cloudy (Clear); Urine Urobilinogen Normal (Normal)
[2021-09-01 12:51] LABS: ALB/GLOB Ratio 0.7 RATIO (0.9-2.4); AST(SGOT) 9 U/L (15-37); Alanine Aminotransfer ALT/SGPT 21 U/L (16-61); Albumin, Serum 2.6 g/dL (3.2-5.0); Alkaline Phosphatase 56 U/L (45-117); Anion Gap 3 (5-15); BUN 18 mg/dL (7-18); Calcium,Total 9.3 mg/dL (8.5-10.1); Chloride 100 mmol/L (98-107); Creatinine, Serum 0.64 mg/dL (0.70-1.30); EST Glomerular Filtration Rate 128 mL/min (>60); Est Glom Filt Rate - Afr Amer 154 mL/min (>60); Estimated Creatinine Clearance 63.03 ml/min; Globulin 3.7 g/dL (2.2-4.2); Glucose 140 mg/dL (74-106); Potassium 4.2 mmol/L (3.5-5.1); Protein, Total 6.3 g/dL (6.4-8.2); Sodium Level 132 mmol/L (136-145)
[2021-09-01 13:00] LABS: Squamous Epithelial Cells - UA 0 SEEN /hpf (0-5)
[2021-09-01 13:14] VITALS: BP 129/60; PULSE 53; RESP 16; O2SAT 97
[2021-09-01] MEDS: 0.9% Normal Saline 1,000 ML 999 ML IV (13:22)
--- NOTE | 2021-09-01 13:23 | ED.RN ---
URINAL EMPTIED 400 OUTPUT. IV FLUIDS HUNG, SCANNER NEEDED REBOOTED. PT TOLERATING WELL> DR AT BED SIDE
--- NOTE | 2021-09-01 13:41 | NURSING ---
DR LUNA FOR ER DOC
--- NOTE | 2021-09-01 13:47 | NURSING ---
MED SURG CHERYL WEAKNESS, FREQUENT FALLS, INABILITY TO AMBULATE
[2021-09-01 14:04] LABS: Magnesium 1.9 mg/dL (1.6-2.6)
--- NOTE | 2021-09-01 14:11 | HP.PCM.HOS_ITS ---
HPI - General General Date of Admission: 09/01/21 Date of Service: 09/01/21 Chief Complaint: Recurrent fall increased last 5 to 6 months HPI Narrative REENA QUINTANA, is a 80 M who was brought to ED because of frequent fall. As per patient, his and daughter at the bedside, his first fall was in February 28, 2021 and after that he fell down in March and April. Frequency of fall increased recently in July and August. He fell down 3 times in August most recent today. He fell down about 18-20 times since first fall. He also has progressive weakness of both lower extremities right more than left. He fell down on the right knee and right knee is more swollen than the left for weeks to months. Patient also complains of pain on the flexion and extension of right knee and left knee. Patient cannot put weight on his legs and cannot move but his upper body is strong. His PCP referred to neurologist and after lumbar puncture and EMG of both upper and lower extremities is diagnosed CIDP. Neurologist Dr. Wisdom started on gabapentin and IVIG infusion. IV infusion has not been started yet. His further said he was recommended duloxetine but not started because of fear of aggravation of CIDP. He denies chest pain, shortness of breath, syncope or near syncope. Denies dysuria, increased frequency or urgency of urination. Sometimes patient has mild constipation but denies abdominal pain. No nausea vomiting. He was brought to ED as patient's caregiver cannot take care of him at home. The patient history of diabetes mellitus type 2 and has glucose sensor on his left arm. [facility] Medical History Chronic inflammatory demyelinating polyneuritis Chronic neck and back pain Diabetes History of skin cancer Home Medications aspirin 81 mg tablet,delayed release 81 mg PO BID tab 08/16/19 [History Last Taken Unknown] flash glucose sensor #6 ea 04/03/21 [Rx Last Taken Unknown] pen needle, diabetic 32 gauge x #400 ea 04/03/21 [Rx Last Taken Unknown] blood sugar diagnostic #100 ea 04/19/21 [Rx Last Taken Unknown] lancets 33 gauge #100 ea 04/19/21 [Rx Last Taken Unknown] gabapentin 600 mg PO QHS 08/11/21 [History Last Taken Unknown] insulin aspart U-100 [Novolog Flexpen U-100 Insulin] 7 unit SUBCUT TID 08/11/21 [History Last Taken Unknown] insulin glargine [Lantus Solostar U-100 Insulin] 16 unit SUBCUT DAILY 08/11/21 [History Last Taken Unknown] magnesium oxide 800 mg PO BID 08/11/21 [History Last Taken Unknown] gabapentin 200 mg PO BID@0800,1400 09/01/21 [History Last Taken 09/01/21] insulin aspart U-100 [Novolog Flexpen U-100 Insulin] 4 unit SUBCUT BID 09/01/21 [History Last Taken 08/31/21] Allergy/AdvReac Type Severity Reaction Status Date / Time No Known Allergies Allergy Verified 08/11/21 12:45 Surgical History History of vasectomy Social History Smoking Status: Never smoker alcohol intake: never substance use type: does not use what type of physical activity do you participate in: weight training and other details: Golf frequency: 5-6 times per week ROS ROS Narrative Constitutional: Reports fatigue and weakness predominantly in lower legs. HEENT: Reports systems reviewed and no addt'l complaints, except as documented Respiratory/Chest: Denies chest pain, shortness of breath at rest or with exertion Gastrointestinal: Denies coffee ground emesis, hematemesis or vomiting Genitourinary: Denies burning urination or new urinary tract symptoms Musculoskeletal: Reports bilateral knee joint pain and limited range of motion. Weakness of both lower legs Neurologic: As mentioned in HPI. Denies seizure-like activity skin: No ulcer. No rash Endocrinology: Diabetes mellitus type 2. Peripheral/diabetic neuropathy. Reports systems reviewed and no addt'l complaints, except as documented Hematologic/Lymphatic: Reports systems reviewed and no addt'l complaints, except as documented Rest 14 ROS are negative except as mentioned in HPI Vital Signs Vital Signs Vital Signs: 09/01/21 10:54 09/01/21 10:55 09/01/21 11:03 Temperature 98.5 F Temperature Source Oral Pulse Rate 58 L 62 Respiratory Rate 16 16 Respiratory Effort Normal Non-Labored Respiratory Depth Normal Respiratory Pattern Normal Blood Pressure 137/68 H 159/63 H Blood Pressure Mean 91 95 Pulse Ox 100 100 Oxygen Delivery Method Room Air Room Air Room Air 09/01/21 13:14 Temperature Temperature Source Pulse Rate 53 L Respiratory Rate 16 Respiratory Effort Respiratory Depth Respiratory Pattern Blood Pressure 129/60 H Blood Pressure Mean 83 Pulse Ox 97 Oxygen Delivery Method Room Air Weight Weight: 164 lb 0.383 oz Body Mass Index (BMI) 22.8 Physical Exam Narrative General: Alert, Oriented x3, Cooperative HEENT: Atraumatic, PERRLA, EOMI, Normocephalic Oral: No Gingival or Mucosal Lesions/ Ulcerations Neck: Supple, No JVD, Negative Carotid Bruits Lungs: Air entry equal in bilateral lung bases. No crepitation/rhonchi Cardiovascular: Regular rate, Regular Rhythm, Normal S1, Normal S2, No murmurs Abdomen: Bowel Sounds Present, Soft, Non Tender, Non-Distended : No renal angle tenderness. No suprapubic tenderness. Extremities: No edema, Capillary Refill Less than 3 Seconds Skin: No rashes, No breakdown Musculoskeletal: Tenderness over right knee. Right knee more swollen than left knee pain. Flexion, extension, abduction abduction are limited predominantly over right knee. Muscle strength 3/5 at major joints of bilateral hips and knee joints. Neurological: Cranial nerves II-XII grossly intact, DTR 2/4. No knee or ankle clonus. Psych/Mental Status: Normal Affect, Appropriate Results Lab / Micro Data Result Diagrams: 09/01/21 12:28 09/01/21 12:28 Labs: Laboratory Results - last 24 hr 09/01/21 12:28: WBC 7.1, RBC 3.93 L, Hgb 12.5 L, Hct 34.9 L, MCV 88.8, MCH 31.8, MCHC 35.8, RDW Std Deviation 39.7, RDW Coeff of Skinny 12.0, Plt Count 375, MPV 7.9, Immature Gran % (Auto) 0.400, Neut % (Auto) 66.3, Lymph % (Auto) 23.5, [place] % (Auto) 8.7, Eos % (Auto) 0.7, Baso % (Auto) 0.4, Absolute Neuts (auto) 4.7, Absolute Lymphs (auto) 1.67, Nucleated RBC % 0 09/01/21 12:28: Sodium 132 L, Potassium 4.2, Chloride 100, Carbon Dioxide 29.0, Anion Gap 3 L, BUN 18, Creatinine 0.64 L, Estim Creat Clear Calc 63.03, Est GFR (MDRD) Af Amer 154, Est GFR (MDRD) Non-Af 128, BUN/Creatinine Ratio 28.0 H, Glucose 140 H, Calcium 9.3, Total Bilirubin 0.40, AST 9 L, ALT 21, Alkaline Phosphatase 56, Total Protein 6.3 L, Albumin 2.6 L, Globulin 3.7, Albumin/Globulin Ratio 0.7 L 09/01/21 12:42: Urine Color Yellow, Urine Clarity Sl. Cloudy, Urine pH 7.0, Ur Specific [place] 1.010, Urine Protein Negative, Urine Glucose (UA) Normal, Urine Ketones Negative, Urine Occult Blood Negative, Urine Nitrite Negative, Urine Bilirubin Negative, Urine Urobilinogen Normal, Ur Leukocyte Esterase Negative, Urine RBC 0 SEEN, Urine WBC 0 SEEN, Ur Squamous Epith Cells 0 SEEN, Urine Bacteria 0 SEEN, Urine Mucus 0 SEEN 09/01/21 13:50: Magnesium 1.9 Radiology Impression Knee X-Ray 09/01/21 12:16 IMPRESSION: Negative left knee x-rays. at 1309 Reported and signed by: George Camarillo MD Electronically Signed: George Camarillo MD at 13:08 EDT , Knee X-Ray 09/01/21 12:22 IMPRESSION: Moderate size joint effusion with prepatellar soft tissue swelling. Heterogeneous appearance of the patella. I cannot exclude a nondisplaced patellar fracture. Electronically Signed: Stiven Reinoso MD at 12:49 EDT , Assessment & Plan Assessment/Plan (1) Frequent falls: PLAN: 1. Debility due to frequent fall increased recently: Patient is being admitted on MedSurg floor. Patient cannot stand up or walk. Patient has inability to care for himself. Right knee and left knee x-rays reviewed. Right knee and left knee x-rays individually reviewed and right knee shows moderate joint effusion with prepatellar soft tissue swelling. I think it is directly related to fall on the right knee. PT and OT ordered. Patient does not have fever or chills but has localized tenderness over right knee. Pain control. 2. CIDP: Patient established diagnosis of CIDP by neurologist Dr. Wisdom after detailed work-up of LP and EMG. Continue gabapentin. As per , she does not want duloxetine. Further follow-up with Dr. Wisdom as an outpatient to start IVIG. 3. Diabetes mellitus type 2: Accu-Chek before meals and at bedtime. Patient wants to continue his home insulin NovoLog and Lantus. Home dose of NovoLog and Lantus insulin continued with holding parameter. 4. Peripheral neuritis possible related to CIDP or diabetic neuropathy: 5. VT prophylaxis: Lovenox 40 mg subcu daily. Discontinue if platelet count drops less than 50,000 or hemoglobin less than 8 g% Living will/advanced directive/end of life care: Patient does not have living will or advanced directive. He and his is interested in making advanced directive. I educated about the procedure of advanced directive/living will. After discussion of benefits/risks procedures involved with full code, DNR CC arrest and DNR CC, the patient and his opted for DNRCC arrest with no intubation. Patient doesn't want artificial life support including intubation, tube feed, ventilator and/chest compression, central venous catheter, vasopressor and DC shock if needed Total time spent in [id number] encounter in discussion of advanced directive 16 minutes. Charges/Coding Visit Charges OBSV E&M: 03255 Initial observation care L3 Procedures Hospitalists Procedures: 61007 Advncd Care Plan 30 Min
--- NOTE | 2021-09-01 14:25 | CM.ED ---
Social Work Dr. Alvarado to this social service director's office and communicated that family is requesting for patient to be admitted for patient to transition to a jail home for care. Dr. Alvarado request for this social service director to go back and speak with family and patient as there seems to be some confusion. This social service director back in to speak with patient and patient family in room. This social service director updated patient and patient family on conversation with Dr. Wisdom's office and that an infusion nurse will be reaching out to patient tomorrow. Patient is now awake in bed and speaking with family. Patient states multiple times to not want to come into the hospital for [place] [facility] placement. Patient spouse reports concern of being able to care for patient. Dr. Ramirez, hospitalist entering room to speak with patient and patient family. After further conversation with this social service director and Dr. Ramirez patient is agreeable to admission to acute care unit to facilitate [place] [facility] placement. Patient spouse is agreeable to admission as well. Active support provided. Social work to continue to follow for placement. PLAN: Admit to acute. Bry UMANA, KEVIN
[2021-09-01 14:45] VITALS: BP 140/74; PULSE 57; RESP 16; TEMP 36.6; O2SAT 99
[2021-09-01 14:48] VITALS: BMI 21.9
[2021-09-01 16:12] VITALS: O2SAT 96
[2021-09-01 17:56] LABS: Bedside Glucose 193 mg/dL (74-106)
[2021-09-01] MEDS: Insulin Lispro 100 UNIT/ML INSULN.PEN SC (18:21)
[2021-09-01] MEDS: Enoxaparin 40 MG/0.4 ML Syringe SC (18:26)
--- NOTE | 2021-09-01 18:33 | CT_ITS ---
EXAM: CT RIGHT LOWER EXTREMITY WITHOUT INTRAVENOUS CONTRAST, KNEE CLINICAL INDICATION: right knee pain, cannot rule out fracture on xray multiple falls recently, bilateral lower extremity weakness, diabetes. TECHNIQUE: Helically acquired images were obtained of the right knee without intravenous contrast. This CT exam was performed using one or more of the following dose reduction techniques: automated exposure control, adjustment of the mA and/or kV according to patient size, and/or use of iterative reconstruction technique. This report was created using [employer] report [employer] technology. COMPARISON: None. FINDINGS: BONES/JOINTS: Diffuse heterogeneous appearance of the rectus femoris muscle suggesting underlying intravenous hematoma. Minimal degenerative findings of the knee. There is inferior patellar acute fracture. This is not significantly displaced. There is a small suprapatellar effusion. Demineralization of the bones. SOFT TISSUES: Unremarkable. No soft tissue swelling or gas. No radiopaque foreign body. CT/Extremity Lower without Contra IMPRESSION: Diffuse heterogeneous appearance of the rectus femoris muscle suggesting underlying intravenous hematoma. Minimal degenerative findings of the knee. There is inferior patellar acute fracture. This is not significantly displaced. There is a small suprapatellar effusion. Electronically Signed: Maikol Lilly MD at 21:11 EDT ,
[2021-09-01 20:34] VITALS: BP 124/61; PULSE 66; RESP 18; TEMP 36.8; O2SAT 99
[2021-09-01] MEDS: Gabapentin 600 MG Tablet PO (20:47)
[2021-09-01] MEDS: Magnesium Chloride 64 MG Delay Rel.Tablet 256 MG PO (20:47)
[2021-09-01 21:01] LABS: Bedside Glucose 175 mg/dL (74-106)
[2021-09-02 02:30] VITALS: BP 141/67; PULSE 60; RESP 18; TEMP 37.1; O2SAT 98
[2021-09-02 06:16] LABS: Absolute Lymphocyte Count 2.49 X10^3/uL (0.83-4.51); Absolute Neutrophil Count 3.7 X10^3/uL (2.0-7.7); Basophil# 0.02 X10^3/uL; Basophil% 0.3 % (0-1); Eosinophil# 0.09 X10^3/uL; Eosinophils% 1.3 % (0-5); Hematocrit 33.4 % (40-54); Hemoglobin 11.6 g/dL (13.0-16.5); Lymphocyte # 2.49 X10^3/ul (0.83-4.51); Lymphocyte % 35.3 % (19-41); Mean Corp Hgb Conc 34.7 g/dL (32-36); Mean Corpuscular Hgb 31.1 pg (27.0-32.0); Mean Corpuscular Volume 89.5 fL (80-94); Monocyte# 0.69 X10^3/uL; Monocyte% 9.8 % (0-10); NRBC Flagged by Analyzer 0 % (0-5); Neutrophil # 3.74 X10^3/uL (2.7-7.7); Platelet Count 358 K/mm3 (150-450); RBC Distribution Width CV 12.4 % (11.6-14.6); RBC Distribution Width SD 40.6 fl (35.1-43.9); Red Blood Count 3.73 M/mm3 (4.6-6.2); White Blood Count 7.1 K/mm3 (4.4-11.0)
[2021-09-02 06:40] LABS: Anion Gap 4 (5-15); BUN 16 mg/dL (7-18); BUN/Creat Ratio 28.6 RATIO (10-20); Chloride 105 mmol/L (98-107); Creatinine, Serum 0.56 mg/dL (0.70-1.30); EST Glomerular Filtration Rate 149 mL/min (>60); Est Glom Filt Rate - Afr Amer 181 mL/min (>60); Estimated Creatinine Clearance 60.41 ml/min; Glucose 112 mg/dL (74-106); Potassium 3.7 mmol/L (3.5-5.1); Sodium Level 135 mmol/L (136-145)
[2021-09-02 06:41] LABS: Bedside Glucose 130 mg/dL (74-106)
--- NOTE | 2021-09-02 07:29 | CON.PCM_ITS ---
Assessment & Plan Assessment/Plan (1) Right patella fracture: QUALIFIERS: Encounter type: initial encounter Fracture type: closed Fracture morphology: other fracture Qualified Code(s): S82.091A - Other fracture of right patella, initial encounter for closed fracture PLAN: Patient has a Nondisplaced inferior patella fracture with a transverse and sleeve component. Recommend patient wear knee immobilizer when attempting to ambulate or transfer as to not put pressure across the knee with the knee in a flexed posture as this could increase risk of fracture displacement and require more surgical intervention. At this point no surgical intervention required patient may remove knee immobilizer when sitting in a chair and been to a comfortable position But then needs to have it placed back on when attempting to stand or transfer from this point. Recommend repeat x-rays in 4 weeks. HPI Consult Data Date of Consult: 09/02/21 HPI Narrative HPI Narrative: REENA QUINTANA, is a 80 M With diagnosis of chronic inflammatory demyelinating polyneuropathy who states he has had progressive weakness and numbness in his lower extremities since his diagnosis and has had increased falls, He missed about 20 recent falls most recently landing onto his right knee complaining of right knee pain. He states he has numbness up to his hips b ilaterally from his feet. FORMERLY [facility], [facility] Medical History Chronic inflammatory demyelinating polyneuritis Chronic neck and back pain Diabetes History of skin cancer Home Medications aspirin 81 mg tablet,delayed release 81 mg PO DAILY tab 08/16/19 [History Last Taken 08/31/21] flash glucose sensor #6 ea 04/03/21 [Rx Last Taken Unknown] pen needle, diabetic 32 gauge x #400 ea 04/03/21 [Rx Last Taken Unknown] blood sugar diagnostic #100 ea 04/19/21 [Rx Last Taken Unknown] lancets 33 gauge #100 ea 04/19/21 [Rx Last Taken Unknown] gabapentin 600 mg PO QHS 08/11/21 [History Last Taken 08/31/21] insulin aspart U-100 [Novolog Flexpen U-100 Insulin] 7 unit SUBCUT .BREAKFAST 08/11/21 [History Last Taken 09/01/21] insulin glargine [Lantus Solostar U-100 Insulin] 16 unit SUBCUT DAILY 08/11/21 [History Last Taken 09/01/21] magnesium oxide 800 mg PO BID 08/11/21 [History Last Taken 09/01/21] gabapentin 200 mg PO BID@0800,1400 09/01/21 [History Last Taken 09/01/21] insulin aspart U-100 [Novolog Flexpen U-100 Insulin] 4 unit SUBCUT BIDCM 09/01 [History Last Taken 08/31/21] Allergy/AdvReac Type Severity Reaction Status Date / Time No Known Allergies Allergy Verified 08/11/21 12:45 Surgical History History of vasectomy Social History Smoking Status: Never smoker alcohol intake: never substance use type: does not use what type of physical activity do you participate in: weight training and other details: Golf frequency: 5-6 times per week Physical Exam Const alert, oriented x3 and no apparent distress General Appearance: ill appearing and frail Extremity Extremity Narrative: Right knee with no open wounds no erythema no joint effusion he does have subcutaneousSwellingAnd prepatellar bursal fluid. No collateral instability there is some anterior cruciate laxity. He has intact station to light touch although says it feels funny and he is able to wiggle his toes and ankle. Lab / Micro Data Result Diagrams: 09/02/21 06:01 09/02/21 06:01 Labs: Laboratory Results - last 24 hr 09/01/21 12:28: WBC 7.1, RBC 3.93 L, Hgb 12.5 L, Hct 34.9 L, MCV 88.8, MCH 31.8, MCHC 35.8, RDW Std Deviation 39.7, RDW Coeff of Skinny 12.0, Plt Count 375, MPV 7.9, Immature Gran % (Auto) 0.400, Neut % (Auto) 66.3, Lymph % (Auto) 23.5, [place] % (Auto) 8.7, Eos % (Auto) 0.7, Baso % (Auto) 0.4, Absolute Neuts (auto) 4.7, Absolute Lymphs (auto) 1.67, Nucleated RBC % 0 09/01/21 12:28: Sodium 132 L, Potassium 4.2, Chloride 100, Carbon Dioxide 29.0, Anion Gap 3 L, BUN 18, Creatinine 0.64 L, Estim Creat Clear Calc 63.03, Est GFR (MDRD) Af Amer 154, Est GFR (MDRD) Non-Af 128, BUN/Creatinine Ratio 28.0 H, Glucose 140 H, Calcium 9.3, Total Bilirubin 0.40, AST 9 L, ALT 21, Alkaline Phosphatase 56, Total Protein 6.3 L, Albumin 2.6 L, Globulin 3.7, Albumin/Globulin Ratio 0.7 L 09/01/21 12:42: Urine Color Yellow, Urine Clarity Sl. Cloudy, Urine pH 7.0, Ur Specific [place] 1.010, Urine Protein Negative, Urine Glucose (UA) Normal, Urine Ketones Negative, Urine Occult Blood Negative, Urine Nitrite Negative, Urine Bilirubin Negative, Urine Urobilinogen Normal, Ur Leukocyte Esterase Negative, Urine RBC 0 SEEN, Urine WBC 0 SEEN, Ur Squamous Epith Cells 0 SEEN, Urine Bacteria 0 SEEN, Urine Mucus 0 SEEN 09/01/21 13:50: Magnesium 1.9 09/01/21 17:47: POC Glucose 193 H 09/01/21 20:50: POC Glucose 175 H 09/02/21 06:01: WBC 7.1, RBC 3.73 L, Hgb 11.6 L, Hct 33.4 L, MCV 89.5, MCH 31.1, MCHC 34.7, RDW Std Deviation 40.6, RDW Coeff of Skinny 12.4, Plt Count 358, MPV 8.0, Immature Gran % (Auto) 0.300, Neut % (Auto) 53.0, Lymph % (Auto) 35.3, [place] % (Auto) 9.8, Eos % (Auto) 1.3, Baso % (Auto) 0.3, Absolute Neuts (auto) 3.7, Absolute Lymphs (auto) 2.49, Nucleated RBC % 0 09/02/21 06:01: Sodium 135 L, Potassium 3.7, Chloride 105, Carbon Dioxide 26.0, Anion Gap 4 L, BUN 16, Creatinine 0.56 L, Estim Creat Clear Calc 60.41, Est GFR (MDRD) Af Amer 181, Est GFR (MDRD) Non-Af 149, BUN/Creatinine Ratio 28.6 H, Glucose 112 H, Calcium 9.0 09/02/21 06:34: POC Glucose 130 H Radiology Impression Knee X-Ray 09/01/21 12:16 IMPRESSION: Negative left knee x-rays. at 1309 Reported and signed by: George Camarillo MD Electronically Signed: George Camarillo MD at 13:08 EDT , Knee X-Ray 09/01/21 12:22 IMPRESSION: Moderate size joint effusion with prepatellar soft tissue swelling. Heterogeneous appearance of the patella. I cannot exclude a nondisplaced patellar fracture. Electronically Signed: Stiven Reinoso MD at 12:49 EDT , Lower Extremity CT 09/01/21 18:33 IMPRESSION: Diffuse heterogeneous appearance of the rectus femoris muscle suggesting underlying intravenous hematoma. Minimal degenerative findings of the knee. There is inferior patellar acute fracture. This is not significantly displaced. There is a small suprapatellar effusion. Electronically Signed: Maikol Lilly MD at 21:11 EDT ,
[2021-09-02 07:32] VITALS: O2SAT 95
[2021-09-02 09:10] VITALS: BP 139/66; PULSE 60; RESP 18; TEMP 36.4; O2SAT 100
--- NOTE | 2021-09-02 09:22 | CASEMGMT ---
TC to [facility] to check pt progress with PT. Left message with clinical visual presentation manager Amy requesting call back.
[2021-09-02] MEDS: Insulin Lispro 100 UNIT/ML INSULN.PEN 7 UNIT SC (09:51)
[2021-09-02] MEDS: Insulin Glargine-YFGN 100 UNIT/ML Pen 16 UNIT SC (09:52)
[2021-09-02] MEDS: Enoxaparin 40 MG/0.4 ML Syringe SC (09:52)
[2021-09-02] MEDS: Magnesium Chloride 64 MG Delay Rel.Tablet 256 MG PO ×2 (09:52→20:35)
[2021-09-02] MEDS: Aspirin E.C. 81 MG Tablet PO (09:52)
--- NOTE | 2021-09-02 12:17 | PN.HOSP_ITS ---
Subjective Subjective Patient seen and examined. He was admitted with a complaint of recurrent falls. Patient was tearful this morning because of his loss of quality of life due to his frequent falls. He states his frequent falls is due to worsening peripheral neuropathy. Was diagnosed with chronic inflammatory demyelinating polyneu ropathy a few months ago and states has been going downhill since then. He feels his legs are very weak due to the neuropathy and this is ascending and this was causing his weakness. Review of systems otherwise negative. Objective Data Objective Data Vital Signs: Vital Signs Temp Pulse Resp BP Pulse Ox 97.5 F L 60 18 139/66 H 100 09/02/21 09:10 09/02/21 09:10 09/02/21 09:10 09/02/21 09:10 09/02/21 09:10 Oxygen Delivery Method Room Air Weight: 157 lb 3.033 oz Body Mass Index (BMI) 21.9 Intake & Output: Intake and Output for Last 24 Hours 08/31/21 09/01/21 09/02/21 23:59 23:59 23:59 Intake Total 1000 / 1000 Output Total 1050 / 1050 Balance 1000 / 550 -1050 / -1050 Lab / Micro Data Result Diagrams: 09/02/21 06:01 09/02/21 06:01 Labs: Laboratory Results - last 24 hr 09/01/21 12:28: WBC 7.1, RBC 3.93 L, Hgb 12.5 L, Hct 34.9 L, MCV 88.8, MCH 31.8, MCHC 35.8, RDW Std Deviation 39.7, RDW Coeff of Skinny 12.0, Plt Count 375, MPV 7.9 , Immature Gran % (Auto) 0.400, Neut % (Auto) 66.3, Lymph % (Auto) 23.5, [place] % (Auto) 8.7, Eos % (Auto) 0.7, Baso % (Auto) 0.4, Absolute Neuts (auto) 4.7, Absolute Lymphs (auto) 1.67, Nucleated RBC % 0 09/01/21 12:28: Sodium 132 L, Potassium 4.2, Chloride 100, Carbon Dioxide 29.0, Anion Gap 3 L, BUN 18, Creatinine 0.64 L, Estim Creat Clear Calc 63.03, Est GFR (MDRD) Af Amer 154, Est GFR (MDRD) Non-Af 128, BUN/Creatinine Ratio 28.0 H, Glucose 140 H, Calcium 9.3, Total Bilirubin 0.40, AST 9 L, ALT 21, Alkaline Phosphatase 56, Total Protein 6.3 L, Albumin 2.6 L, Globulin 3.7, Albumin/Globulin Ratio 0.7 L 09/01/21 12:42: Urine Color Yellow, Urine Clarity Sl. Cloudy, Urine pH 7.0, Ur Specific [place] 1.010, Urine Protein Negative, Urine Glucose (UA) Normal, Urine Ketones Negative, Urine Occult Blood Negative, Urine Nitrite Negative, Urine Bilirubin Negative, Urine Urobilinogen Normal, Ur Leukocyte Esterase Negative, Urine RBC 0 SEEN, Urine WBC 0 SEEN, Ur Squamous Epith Cells 0 SEEN, Urine Bacteria 0 SEEN, Urine Mucus 0 SEEN 09/01/21 13:50: Magnesium 1.9 09/01/21 17:47: POC Glucose 193 H 09/01/21 20:50: POC Glucose 175 H 09/02/21 06:01: WBC 7.1, RBC 3.73 L, Hgb 11.6 L, Hct 33.4 L, MCV 89.5, MCH 31.1, MCHC 34.7, RDW Std Deviation 40.6, RDW Coeff of Skinny 12.4, Plt Count 358, MPV 8.0, Immature Gran % (Auto) 0.300, Neut % (Auto) 53.0, Lymph % (Auto) 35.3, [place] % (Auto) 9.8, Eos % (Auto) 1.3, Baso % (Auto) 0.3, Absolute Neuts (auto) 3.7, Absolute Lymphs (auto) 2.49, Nucleated RBC % 0 09/02/21 06:01: Sodium 135 L, Potassium 3.7, Chloride 105, Carbon Dioxide 26.0, Anion Gap 4 L, BUN 16, Creatinine 0.56 L, Estim Creat Clear Calc 60.41, Est GFR (MDRD) Af Amer 181, Est GFR (MDRD) Non-Af 149, BUN/Creatinine Ratio 28.6 H, Glucose 112 H, Calcium 9.0 09/02/21 06:34: POC Glucose 130 H Radiography Diagnostic Testing: Radiology Impression Knee X-Ray 09/01/21 12:16 IMPRESSION: Negative left knee x-rays. at 1309 Reported and signed by: George Camarillo MD Electronically Signed: George Camarillo MD at 13:08 EDT , Knee X-Ray 09/01/21 12:22 IMPRESSION: Moderate size joint effusion with prepatellar soft tissue swelling. Heterogeneous appearance of the patella. I cannot exclude a nondisplaced patellar fracture. Electronically Signed: Stiven Reinoso MD at 12:49 EDT , Lower Extremity CT 09/01/21 18:33 IMPRESSION: Diffuse heterogeneous appearance of the rectus femoris muscle suggesting underlying intravenous hematoma. Minimal degenerative findings of the knee. There is inferior patellar acute fracture. This is not significantly displaced. There is a small suprapatellar effusion. Electronically Signed: Maikol Lilly MD at 21:11 EDT , Physical Exam Const alert and oriented x3 Constitutional Narrative: tearful Exam Limitations: no limitations HEENT head/scalp atraumatic, moist oral mucous membranes and oropharynx normal Head and Scalp: normocephalic Eyes PERRL, EOMs intact bilaterally and conjunctivae normal Neck no lymphadenopathy, supple and no JVD Resp normal respiratory effort and no retractions Cardio regular rate, regular rhythm, S1 normal heart sound, S2 normal heart sound and no murmurs GI normal to inspection, nondistended, normoactive bowel sounds Extremity Extremity Narrative: right knee swollen, tender, unable to fully flex the right knee Peripheral Pulses: Yes pulses 2+ throughout Skin no rashes or lesions noted Neuro oriented x3 and CN's II-XII intact bilaterally Sensorium / Orientation: awake and alert Psych Mood & Affect: depressed Assessment & Plan Assessment/Plan (1) Right patella fracture: QUALIFIERS: Encounter type: initial encounter Fracture type: closed Fracture morphology: other fracture Qualified Code(s): S82.091A - Other fracture of right patella, initial encounter for closed fracture (2) Frequent falls: PLAN: #Debility due to mechanical falls * he has been falling down since February 2021, and has also been falling periodically every month. * PT/OT on board. Fall precautions * likely due to 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 * #Right Patellar fracture * fell on his right knee and couldnt flex or extend the right knee * imaging showed effusion and left patellar knee fracture * CT of the LLE shwoed findings suggestive of intravenous hematoma in the rectus femoris muscle with an inferior patella acute fracture not significantly displaced and a small suprapatellar effusion * orthopedic surgery on board and recommends medical management. * #Chronic inflammatory demyelinating polyneuropathy * he was recently diagnosed with this after he had workup with LP and EMG. * on gabapentin. on IVIG on outpatient basis per neurology * PT/OT on board. * Fall precautions * #Type 2 diabetes mellitus * on lantus 16 units daily. ISS. Accuchecks ACHS * #Peripheral neuritis * currently stable * DVT prophylaxis; lovenox Code status: DNRCCA no intubation # Charges/Coding Visit Charges Inpatient E&M: 90643 Subs Hosp L2
[2021-09-02] MEDS: Insulin Lispro 100 UNIT/ML INSULN.PEN SC ×2 (12:56→17:51)
[2021-09-02 13:06] LABS: Bedside Glucose 159 mg/dL (74-106)
--- NOTE | 2021-09-02 14:05 | CASEMGMT ---
Social Work CHEMO met with pt and his daughter Sania to discuss discharge plan. Pt stating that discharge plan is up to his daughter. Sania states that pt, pt and she have talked and decided they would like short term rehab with plan to bring pt home, even if that means he will need to return home with a hospital bed and spend most of his time in the bed. SW provided pt with list of SNF providers including quality and resource use data and consistent with the patient's preferred geographic region, medical needs and insurance network. Pt preferred provider is 1. [facility]CU 2. [facility] 3. [facility]. Of note, Pt is working with Dr. 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 Phone call to Gabby in TCU and they do not have beds available until Tuesday and do not accept pts who will be receiving infusions. Sania updated TCU cannot accept. Phone call to Lidya at [facility] and VM left. Referral faxed. Will await determination of acceptance. MS Asha3 CHEMO updated. MAAME Chavarria
[2021-09-02 15:00] VITALS: BP 116/58; PULSE 68; RESP 18; TEMP 36.7; O2SAT 98
--- NOTE | 2021-09-02 15:47 | CASEMGMT ---
Social Work Note CHEMO received a call from Gilda at [facility] stating they did get a contract with [employer] but states it is in the final stages and not yet approved officially. Gilda states medically they can accept pt and are willing to trying for a One Time Contract. CHEMO asked Gilda to try for a one time contract with [employer]. Gilda states she will submit for one time contract. Plan: [facility] pending one time contract with [employer] Asha Swain [employer], [employer]ED [employer]ER
[2021-09-02 17:21] LABS: Bedside Glucose 142 mg/dL (74-106)
[2021-09-02 20:31] VITALS: BP 114/47; PULSE 69; RESP 18; TEMP 37.1; O2SAT 96
[2021-09-02] MEDS: Gabapentin 600 MG Tablet PO (20:35)
[2021-09-02 21:51] LABS: Bedside Glucose 174 mg/dL (74-106)
[2021-09-03 02:48] VITALS: BP 130/71; PULSE 61; RESP 18; TEMP 36.8; O2SAT 99
[2021-09-03 06:38] LABS: Absolute Neutrophil Count 3.7 X10^3/uL (2.0-7.7); Basophil# 0.03 X10^3/uL; Basophil% 0.4 % (0-1); Eosinophil# 0.15 X10^3/uL; Eosinophils% 2.2 % (0-5); Hematocrit 32.7 % (40-54); Hemoglobin 11.5 g/dL (13.0-16.5); Lymphocyte % 32.1 % (19-41); Mean Corp Hgb Conc 35.2 g/dL (32-36); Mean Corpuscular Volume 88.1 fL (80-94); Monocyte# 0.72 X10^3/uL; Monocyte% 10.5 % (0-10); NRBC Flagged by Analyzer 0 % (0-5); Neutrophil # 3.72 X10^3/uL (2.7-7.7); Neutrophil % 54.4 % (47-70); Platelet Count 379 K/mm3 (150-450); RBC Distribution Width CV 12.3 % (11.6-14.6); RBC Distribution Width SD 39.4 fl (35.1-43.9); Red Blood Count 3.71 M/mm3 (4.6-6.2); White Blood Count 6.9 K/mm3 (4.4-11.0)
[2021-09-03 06:59] LABS: Anion Gap 4 (5-15); BUN 19 mg/dL (7-18); BUN/Creat Ratio 29.5 RATIO (10-20); Calcium,Total 9.4 mg/dL (8.5-10.1); Chloride 104 mmol/L (98-107); Creatinine, Serum 0.64 mg/dL (0.70-1.30); EST Glomerular Filtration Rate 127 mL/min (>60); Est Glom Filt Rate - Afr Amer 154 mL/min (>60); Estimated Creatinine Clearance 60.24 ml/min; Glucose 130 mg/dL (74-106); Potassium 3.9 mmol/L (3.5-5.1); Sodium Level 134 mmol/L (136-145)
[2021-09-03 08:21] LABS: Bedside Glucose 135 mg/dL (74-106)
--- NOTE | 2021-09-03 08:45 | CASEMGMT ---
Addendum entered by Erika Ballesteros 09/03/21 09:29: Received tc back from Amy Clinical Service Line Layer at [facility] who states that pt declined HH. Pt qualified for services but declined. Original Note: Late entry for 09/03/2021- TC back to Polly at [facility] to speak regarding HHC, she states pt had a 1x PT visit for safety in the home. Pt did not meet criteria for [facility] skilled care.
[2021-09-03 08:47] VITALS: BP 119/59; PULSE 55; RESP 16; TEMP 36.7; O2SAT 98
[2021-09-03 08:50] VITALS: O2SAT 99
[2021-09-03] MEDS: Magnesium Chloride 64 MG Delay Rel.Tablet 256 MG PO ×2 (08:52→21:04)
[2021-09-03] MEDS: Insulin Lispro 100 UNIT/ML INSULN.PEN 7 UNIT SC (08:52)
[2021-09-03] MEDS: Aspirin E.C. 81 MG Tablet PO (08:52)
[2021-09-03] MEDS: Enoxaparin 40 MG/0.4 ML Syringe SC (08:53)
[2021-09-03] MEDS: Insulin Glargine-YFGN 100 UNIT/ML Pen 16 UNIT SC (08:53)
--- NOTE | 2021-09-03 09:48 | CASEMGMT ---
Social Work Note SW placed a call to Lidya at [facility]. CHEMO infromed Lidya that pt is medically ready for discharge once one time contract is approved. Lidya states that since they have to get a one time contract, it will take longer for pre-cert. Plan: [facility] pending pre-cert/one time contract Asha UMANA, LOADER [employer]
--- NOTE | 2021-09-03 11:06 | CASEMGMT ---
AMEYA CM in to discuss IRENE form with patient. RN CM explained IRENE form, patient voiced understanding. Pt signed form and filed in chart. Pt provided with a copy of signed IRENE form. Patient had no further questions or concerns at this time.
[2021-09-03] MEDS: Insulin Lispro 100 UNIT/ML INSULN.PEN SC ×2 (12:04→17:01)
--- NOTE | 2021-09-03 12:08 | PN.HOSP_ITS ---
Subjective Subjective Patient seen and examined. He had no complaints today and had an uneventful night. He states he did work with therapy but was very weak and nearly fell again. Review of systems otherwise negative. Objective Data Objective Data Vital Signs: Vital Signs Temp Pulse Resp BP Pulse Ox 98.1 F 55 L 166 H 119/59 L 98 09/03/21 08:47 09/03/21 08:47 09/03/21 08:47 09/03/21 08:47 09/03/21 08:47 Oxygen Delivery Method Room Air Weight: 156 lb 11.979 oz Body Mass Index (BMI) 21.9 Intake & Output: Intake and Output for Last 24 Hours 09/01/21 09/02/21 09/03/21 23:59 23:59 23:59 Intake Total 1000 / 1000 300 / 500 400 / 400 Output Total 1400 / 2000 600 / 600 Balance 1000 / 550 -1100 / -1500 -200 / -200 Lab / Micro Data Result Diagrams: 09/03/21 06:10 09/03/21 06:10 Labs: Laboratory Results - last 24 hr 09/02/21 12:54: POC Glucose 159 H 09/02/21 17:11: POC Glucose 142 H 09/02/21 20:30: POC Glucose 174 H 09/03/21 06:10: WBC 6.9, RBC 3.71 L, Hgb 11.5 L, Hct 32.7 L, MCV 88.1, MCH 31.0, MCHC 35.2, RDW Std Deviation 39.4, RDW Coeff of Skinny 12.3, Plt Count 379, MPV 8.0, Immature Gran % (Auto) 0.400, Neut % (Auto) 54.4, Lymph % (Auto) 32.1, [place] % (Auto) 10.5 H, Eos % (Auto) 2.2, Baso % (Auto) 0.4, Absolute Neuts (auto) 3.7, Absolute Lymphs (auto) 2.20, Nucleated RBC % 0 09/03/21 06:10: Sodium 134 L, Potassium 3.9, Chloride 104, Carbon Dioxide 26.0, Anion Gap 4 L, BUN 19 H, Creatinine 0.64 L, Estim Creat Clear Calc 60.24, Est GFR (MDRD) Af Amer 154, Est GFR (MDRD) Non-Af 127, BUN/Creatinine Ratio 29.5 H, Glucose 130 H, Calcium 9.4, Magnesium 2.0 09/03/21 07:44: POC Glucose 135 H Physical Exam Const alert, oriented x3 and no apparent distress Exam Limitations: no limitations HEENT head/scalp atraumatic, moist oral mucous membranes and oropharynx normal Head and Scalp: normocephalic Eyes PERRL, EOMs intact bilaterally and conjunctivae normal Neck no lymphadenopathy, supple and no JVD Resp normal respiratory effort and no retractions Cardio regular rate, regular rhythm, S1 normal heart sound, S2 normal heart sound and no murmurs GI normal to inspection, nondistended, normoactive bowel sounds Extremity normal to inspection and no clubbing, cyanosis or edema Extremity Narrative: right knee swelling has improved significantly tender, unable to fully flex the right knee Peripheral Pulses: Yes pulses 2+ throughout Skin no rashes or lesions noted Neuro oriented x3 and CN's II-XII intact bilaterally Sensorium / Orientation: awake and alert Psych affect normal Assessment & Plan Assessment/Plan (1) Right patella fracture: QUALIFIERS: Encounter type: initial encounter Fracture type: closed Fracture morphology: other fracture Qualified Code(s): S82.091A - Other fracture of right patella, initial encounter for closed fracture (2) Frequent falls: PLAN: #Debility due to mechanical falls * likely due to 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 * PT/PT on board * fall precautions * #Right Patellar fracture * fell on his right knee and couldnt flex or extend the right knee * imaging showed effusion and left patellar knee fracture * CT of the LLE showed findings suggestive of intravenous hematoma in the rectus femoris muscle with an inferior patella acute fracture not significantly displaced and a small suprapatellar effusion * orthopedic surgery on board and recommends medical management. * #Chronic inflammatory demyelinating polyneuropathy * he was recently diagnosed with this after he had workup with LP and EMG. * on gabapentin. on IVIG on outpatient basis per neurology * PT/OT on board. * Fall precautions * #Type 2 diabetes mellitus * on lantus 16 units daily. ISS. Accuchecks ACHS * #Peripheral neuritis * currently stable * DVT prophylaxis; lovenox Code status: DNRCCA no intubation Disposition; awaiting placement Charges/Coding Visit Charges Inpatient E&M: 58052 Subs Hosp L2
[2021-09-03 12:11] LABS: Bedside Glucose 142 mg/dL (74-106)
[2021-09-03 14:12] VITALS: BP 116/56; PULSE 56; RESP 16; TEMP 36.6; O2SAT 100
--- NOTE | 2021-09-03 15:52 | CASEMGMT ---
RN CM in to pt room per request of to explain form pt signed earlier. Reviewed IRENE form and provided explanation to . She verbalized understanding. She apologized and states she is overwhelmed and is having a hard time adjusting to all. She states that she is having difficulty maneuvering through the healthcare system. Provided copy of Are you a hospital inpatient or outpatient booklet. Pt states she thinks she did receive this in the ER as well but does not remember. Pt and deny further needs.
--- NOTE | 2021-09-03 16:30 | CASEMGMT ---
Social Work Note CHEMO received message from Lidya at [facility] stating [employer] denied One Time Contract. SW in to speak with pt and pt's Carmen. SW introduced self and role at [facility]. SW informed pt and Carmen that One Time Contract was denied for [facility]. Carmen and pt agreeable to try [facility]. Carmen states that if no SNF in [facility] can accept pt then she will have to take pt home. Carmen asked about help in the home. Carmen states they had [facility] but an RN never came out and she was expecting a call from Natalya but she never got one. Carmen states Km from PT came out to see pt and they signed off on PT as pt didn't meet skilled needs for PT. Carmen also states they didn't qualify for aide services either. CHEMO spoke with Carmen about private duty aides. Pt stating that he cannot return home and he needs SNF. Pt states that if [facility] cannot accept then to try a [facility] in [place]. Carmen then handed this worker LW and HCPOA and asked if they were filled out completely. SW reviewed documents, both were completed and notarized. Carmen and pt also asked about Code status as they don't want chest compressions, shocked, etc. SW informed pt and Carmen that this worker will need to check on code status. Carmen states that someone was in earlier and had pt sign a consent form and she wants to know what it was. CHEMO informed Carmen that this worker is not sure, can ask RN. Pt and Carmen states understanding. Pt and Carmen again asked why pt cannot stay at [facility] for therapy. CHEMO explained that [facility] cannot accept pt due to pt having to receive infusions. CHEMO asked RN about a consent form. RN CM states she had pt sign IRENE form earlier. CHEMO informed RN CM that pt and Carmen would like to discuss the form. CHEMO made copies of pt's LW and HCPOA and placed on pt's chart. SW checked Code status. SW back in to speak with pt and Carmen. SW provided Carmen with original LW and HCPOA. SW also informed pt and Carmen what his current Code status is. Pt requests Code status to be changed to DNRCC. CHEMO updated assistant technician that pt wants to change Code Status. CHEMO placed a call to Griselda at [facility] and left message regarding referral. SW faxed referral to [facility]. CHEMO also placed a call to [facility] and admissions is gone for the day. SW checked [employer] website and [facility] does not appear as a contracted SNF for [employer]. Plan: SNF pending acceptance and pre-cert Asha Swain MSW, CONDU[employer] RO[employer]
--- NOTE | 2021-09-03 17:00 | CASEMGMT ---
Social Work Note CHEMO received email from Griselda at [facility] stating they can accept pt and will submit for pre-cert. CHEMO in to speak with pt and Carmen. CHEMO updated pt and Carmen that [facility] can accept pt and informed pt and Carmen that it doesn't appear that [facility] is in network with pt's insurance as they didn't come up on [employer]'s website. Pt and Carmen agreeable to [facility]. Pt asked if it will be a private room. SW informed pt that this worker is not sure, can check with [facility]. CHEMO also updated that Carmen was asking about a notary at [facility] to sign a paperwork for a car. CHEMO updated that Rosa Hemhpill is notary and agreeable to signing paperwork and can meet with pt and Carmen tomorrow at around 11:30am. CHEMO in to speak with pt and Carmen and Carmen confirms she has a document that needs to be notarized. CHEMO explained that staff will be in tomorrow around 11:30am to notarize paper. Carmen states she will be in tomorrow and will bring in document. CHEMO emailed Griselda at [facility] and asked if pt's room will be private or semi private. Plan: [facility] pending pre-cert. Asha Swain CRACKER OFF, CONTROL ROOM OPERATOR
[2021-09-03 17:11] LABS: Bedside Glucose 122 mg/dL (74-106)
[2021-09-03] MEDS: Gabapentin 600 MG Tablet PO (21:04)
[2021-09-03] MEDS: 0.9% Saline Lock 10 ML Syringe IV (21:05)
[2021-09-03 21:13] VITALS: BP 147/72; PULSE 61; RESP 18; TEMP 36.7; O2SAT 99
[2021-09-03 21:36] LABS: Bedside Glucose 160 mg/dL (74-106)
[2021-09-04 04:57] VITALS: BP 139/65; PULSE 57; RESP 16; TEMP 36.3; O2SAT 97
[2021-09-04 06:46] LABS: Absolute Lymphocyte Count 2.01 X10^3/uL (0.83-4.51); Absolute Neutrophil Count 3.4 X10^3/uL (2.0-7.7); Basophil# 0.02 X10^3/uL; Basophil% 0.3 % (0-1); Eosinophil# 0.17 X10^3/uL; Eosinophils% 2.7 % (0-5); Hematocrit 34.2 % (40-54); Lymphocyte # 2.01 X10^3/ul (0.83-4.51); Lymphocyte % 32.5 % (19-41); Mean Corp Hgb Conc 35.1 g/dL (32-36); Mean Corpuscular Hgb 31.3 pg (27.0-32.0); Mean Corpuscular Volume 89.3 fL (80-94); Mean Platelet Vol. 7.8 fl (6.2-12.0); Monocyte# 0.59 X10^3/uL; Monocyte% 9.5 % (0-10); NRBC Flagged by Analyzer 0 % (0-5); Neutrophil # 3.38 X10^3/uL (2.7-7.7); Neutrophil % 54.7 % (47-70); Platelet Count 404 K/mm3 (150-450); RBC Distribution Width CV 12.3 % (11.6-14.6); RBC Distribution Width SD 40.6 fl (35.1-43.9); Red Blood Count 3.83 M/mm3 (4.6-6.2); White Blood Count 6.2 K/mm3 (4.4-11.0)
[2021-09-04 07:08] LABS: Anion Gap 4 (5-15); BUN 19 mg/dL (7-18); BUN/Creat Ratio 26.6 RATIO (10-20); Calcium,Total 9.1 mg/dL (8.5-10.1); Chloride 100 mmol/L (98-107); Creatinine, Serum 0.72 mg/dL (0.70-1.30); EST Glomerular Filtration Rate 113 mL/min (>60); Est Glom Filt Rate - Afr Amer 136 mL/min (>60); Estimated Creatinine Clearance 58.37 ml/min; Glucose 125 mg/dL (74-106); Magnesium 2.2 mg/dL (1.6-2.6); Potassium 4.1 mmol/L (3.5-5.1); Sodium Level 132 mmol/L (136-145)
[2021-09-04 08:56] VITALS: BP 126/69; PULSE 54; RESP 16; TEMP 36.6; O2SAT 99
[2021-09-04] MEDS: Aspirin E.C. 81 MG Tablet PO (09:05)
[2021-09-04] MEDS: Magnesium Chloride 64 MG Delay Rel.Tablet 256 MG PO ×2 (09:06→20:50)
[2021-09-04] MEDS: Insulin Glargine-YFGN 100 UNIT/ML Pen 16 UNIT SC (09:06)
[2021-09-04] MEDS: Enoxaparin 40 MG/0.4 ML Syringe SC (09:06)
[2021-09-04] MEDS: Insulin Lispro 100 UNIT/ML INSULN.PEN 7 UNIT SC (09:07)
[2021-09-04 09:16] LABS: Bedside Glucose 147 mg/dL (74-106)
[2021-09-04 10:25] VITALS: O2SAT 98
--- NOTE | 2021-09-04 10:30 | CASEMGMT ---
Social Work Note CHEMO updated that pre-cert was obtained and pt can discharge to [facility] today. SW asked [facility] if pt will be in private room or semi-private. Griselda asked about pt's vaccination status. CHEMO in to speak with pt and asked pt about vaccination status. Pt states he has not received any vaccinations for COVID. CHEMO updated Griselda on pt's vaccination status. Griselda states that since pt has not had any COVID vaccinations, pt will have private room for 10 days of isolation and then after that family can pay privately for a private room. SW in to speak with pt. Pt's Carmen and daughter Sania present in room. SW updated pt, Carmen and Sania that pt was approved for [facility] and he will discharge there today. Pt, Carmen, and Sania state understanding. Physician updated. Plan: [facility] skilled today Asha Swain SITE WORKER, BIOLOGY INTERNSHIP
--- NOTE | 2021-09-04 11:05 | PN.HOSP_ITS ---
Subjective Subjective Patient seen and examined. He was resting calmly in bed and had no active complaints. Review of systems otherwise negative. I was informed by his nurse yesterday that he wanted to switch his CODE STATUS to DNR CC. I clarified this with patient today and he said he did want to change his CODE STATUS to DNR CC. Review of systems is otherwise negative. He has remained hemodynamically stable. Objective Data Objective Data Vital Signs: Vital Signs Temp Pulse Resp BP Pulse Ox 97.8 F 54 L 16 126/69 H 99 09/04/21 08:56 09/04/21 08:56 09/04/21 08:56 09/04/21 08:56 09/04/21 08:56 Oxygen Delivery Method Room Air Weight: 151 lb 14.376 oz Body Mass Index (BMI) 21.9 Intake & Output: Intake and Output for Last 24 Hours 09/02/21 09/03/21 09/04/21 23:59 23:59 23:59 Intake Total 300 / 500 760 / 960 200 / 200 Output Total 1400 / 2000 1150 / 1750 1300 / 1300 Balance -1100 / -1500 -390 / -790 -1100 / -1100 Lab / Micro Data Result Diagrams: 09/04/21 06:27 09/04/21 06:27 Labs: Laboratory Results - last 24 hr 09/03/21 12:03: POC Glucose 142 H 09/03/21 16:59: POC Glucose 122 H 09/03/21 21:22: POC Glucose 160 H 09/04/21 06:27: WBC 6.2, RBC 3.83 L, Hgb 12.0 L, Hct 34.2 L, MCV 89.3, MCH 31.3, MCHC 35.1, RDW Std Deviation 40.6, RDW Coeff of Skinny 12.3, Plt Count 404, MPV 7.8, Immature Gran % (Auto) 0.300, Neut % (Auto) 54.7, Lymph % (Auto) 32.5, [place] % (Auto) 9.5, Eos % (Auto) 2.7, Baso % (Auto) 0.3, Absolute Neuts (auto) 3.4, Absolute Lymphs (auto) 2.01, Nucleated RBC % 0 09/04/21 06:27: Sodium 132 L, Potassium 4.1, Chloride 100, Carbon Dioxide 28.0, Anion Gap 4 L, BUN 19 H, Creatinine 0.72, Estim Creat Clear Calc 58.37, Est GFR (MDRD) Af Amer 136, Est GFR (MDRD) Non-Af 113, BUN/Creatinine Ratio 26.6 H, Glucose 125 H, Calcium 9.1, Magnesium 2.2 09/04/21 09:03: POC Glucose 147 H Physical Exam Const alert, oriented x3 and no apparent distress Constitutional Narrative: tearful Exam Limitations: no limitations HEENT head/scalp atraumatic, moist oral mucous membranes and oropharynx normal Head and Scalp: normocephalic Eyes PERRL, EOMs intact bilaterally and conjunctivae normal Neck no lymphadenopathy, supple and no JVD Resp normal respiratory effort and no retractions Cardio regular rate, regular rhythm, S1 normal heart sound, S2 normal heart sound and no murmurs GI normal to inspection, nondistended, normoactive bowel sounds Extremity normal to inspection and no clubbing, cyanosis or edema Extremity Narrative: right knee swelling has improved significantly Skin no rashes or lesions noted Neuro oriented x3 and CN's II-XII intact bilaterally Neuro Narrative: power in lower extremities is 3/5 Sensorium / Orientation: awake and alert Psych affect normal Assessment & Plan Assessment/Plan (1) Right patella fracture: QUALIFIERS: Encounter type: initial encounter Fracture type: closed Fracture morphology: other fracture Qualified Code(s): S82.091A - Other fracture of right patella, initial encounter for closed fracture (2) Frequent falls: PLAN: #Debility due to mechanical falls * likely due to 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 * PT/PT on board * fall precautions * #Right Patellar fracture * fell on his right knee and couldnt flex or extend the right knee * imaging showed effusion and left patellar knee fracture * CT of the LLE showed findings suggestive of intravenous hematoma in the rectus femoris muscle with an inferior patella acute fracture not significantly displaced and a small suprapatellar effusion * orthopedic surgery on board and recommends medical management. 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 * on gabapentin. on IVIG on outpatient basis per neurology * PT/OT on board. * Fall precautions * #Type 2 diabetes mellitus * on lantus 16 units daily. ISS. Accuchecks ACHS * #Peripheral neuritis * currently stable * DVT prophylaxis; lovenox Code status: DNRCC Disposition; awaiting placement Charges/Coding Visit Charges Inpatient E&M: 46897 Subs Hosp L2
[2021-09-04] MEDS: Insulin Lispro 100 UNIT/ML INSULN.PEN SC ×2 (11:41→17:12)
[2021-09-04 13:05] LABS: Bedside Glucose 172 mg/dL (74-106)
[2021-09-04 13:53] VITALS: BP 103/54; PULSE 58; RESP 16; TEMP 36.6; O2SAT 100
--- NOTE | 2021-09-04 15:10 | PCM.DC.SUM ---
Providers Date of Admission: 09/01/21 Primary Care Physician: Dr. Jose Angel Cesar MD Reason For Visit: FALL Diagnosis Discharge Diagnosis (1) Right patella fracture: Status: Acute Code(s): S82.001A - Unspecified fracture of right patella, initial encounter for closed fracture Qualifiers: Encounter type: initial encounter Fracture type: closed Fracture morphology: other fracture Qualified Code(s): S82.091A - Other fracture of right patella, initial encounter for closed fracture (2) Frequent falls: Status: Acute Code(s): R29.6 - Repeated falls Medications at Discharge Home Medications aspirin 81 mg tablet,delayed release 81 mg PO DAILY tab 08/16/19 flash glucose sensor #6 ea 04/03/21 pen needle, diabetic 32 gauge x #400 ea 04/03/21 blood sugar diagnostic #100 ea 04/19/21 lancets 33 gauge #100 ea 04/19/21 Lantus Solostar U-100 Insulin 16 unit SUBCUT DAILY 08/11/21 gabapentin 600 mg PO QHS 08/11/21 insulin aspart U-100 [Novolog Flexpen U-100 Insulin] 7 unit SUBCUT .BREAKFAST 08/11/21 magnesium oxide 800 mg PO BID 08/11/21 gabapentin 200 mg PO BID@0800,1400 09/01/21 insulin aspart U-100 [Novolog Flexpen U-100 Insulin] 4 unit SUBCUT BIDCM 09/01/21 oxycodone 5 mg PO Q6H PRN 3 Days #12 tab 09/04/21 Hospital Course Operations None Procedures None Summary of Care Provided Minutes Spent on Discharge: 45 Hospital Course: Patient is a 80-year-old male with a past medical history as outlined who was admitted through the ED on 09/01/2021 with a complaint of recurrent falls that includes about the last 5 to 6 months. He had fallen numerous times and had progressive weakness in both lower extremities. With this recent fall he had landed on his right knee which resulted in right knee swelling. Patient had recently been diagnosed with chronic inflammatory demyelinating polyneuropathy by his neurologist on outpatient basis and had been started on gabapentin and IV Ig infusion. Family could not take care of him so he was brought into the ED. 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 PT OT were consulted. Patient was agreeable to placement. Imaging done on admission showed right knee patella fracture. Orthopedic surgery was consulted and recommended conservative management with application of knee immobilizer when patient was standing or attempting to transfer. He is to follow-up with outpatient basis and is to have repeat knee x-rays in about 4 weeks time. His hospital course was not complicated and he was discharged to a senior living on 09/04/2021. He is follow-up with his primary care doctor patient basis. Of note, during this admission, patient changed his CODE STATUS to DNR CC. Patient seen and examined prior to discharge. He had no active complaints and felt well. Review of systems otherwise negative. Labs and vitals reviewed. Medication reviewed and reconciled. He was given a prescription for p.o. oxycodone 5 mg every 6 hours as needed for total of 12 tablets to last 3 days. Physical Exam Const alert, oriented x3 and no apparent distress Constitutional Narrative: tearful General Appearance: cooperative, comfortable and well kempt Exam Limitations: no limitations HEENT normocephalic, head/scalp atraumatic, hearing grossly normal bilaterally, moist oral mucous membranes and oropharynx normal Eyes PERRL, EOMs intact bilaterally and conjunctivae normal Neck no lymphadenopathy, supple and no JVD Resp normal respiratory effort and no retractions Cardio regular rate, regular rhythm, S1 normal heart sound, S2 normal heart sound and no murmurs GI normal to inspection, nondistended, normoactive bowel sounds Extremity normal to inspection and no clubbing, cyanosis or edema Extremity Narrative: right knee swelling has improved significantly Skin no rashes or lesions noted Neuro oriented x3 and CN's II-XII intact bilaterally Neuro Narrative: power in lower extremities is 3/5 Sensorium / Orientation: awake and alert Psych affect normal Mood & Affect: depressed Medical Records Data Medical Nutrition Assessment Dietitian: Malnutrition Criteria Met Start: 09/04/21 11:13 Freq: Status: Active Protocol: Document 09/04/21 11:13 AG (Rec: 09/04/21 11:13 [id number]) Nutrition Malnutrition Evidence of Malnutrition Exists Yes Malnutrition (severe): Chronic Evidenced By Suboptimal Energy Intake ( Severe),Weight Loss (Severe) Clinical Problem Chronic Disease or Condition Related Malnutrition Etiology severe, 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 Weight / BMI Weight Weight: 151 lb 14.376 oz Body Mass Index (BMI) 21.9 ABG / Lab / Microbiology Data Result Diagrams: 09/04/21 06:27 09/04/21 06:27 Laboratory: Laboratory Results - last 24 hr 09/03/21 16:59: POC Glucose 122 H 09/03/21 21:22: POC Glucose 160 H 09/04/21 06:27: WBC 6.2, RBC 3.83 L, Hgb 12.0 L, Hct 34.2 L, MCV 89.3, MCH 31.3, MCHC 35.1, RDW Std Deviation 40.6, RDW Coeff of Skinny 12.3, Plt Count 404, MPV 7.8, Immature Gran % (Auto) 0.300, Neut % (Auto) 54.7, Lymph % (Auto) 32.5, [place] % (Auto) 9.5, Eos % (Auto) 2.7, Baso % (Auto) 0.3, Absolute Neuts (auto) 3.4, Absolute Lymphs (auto) 2.01, Nucleated RBC % 0 09/04/21 06:27: Sodium 132 L, Potassium 4.1, Chloride 100, Carbon Dioxide 28.0, Anion Gap 4 L, BUN 19 H, Creatinine 0.72, Estim Creat Clear Calc 58.37, Est GFR (MDRD) Af Amer 136, Est GFR (MDRD) Non-Af 113, BUN/Creatinine Ratio 26.6 H, Glucose 125 H, Calcium 9.1, Magnesium 2.2 09/04/21 09:03: POC Glucose 147 H 09/04/21 11:39: POC Glucose 172 H Microbiology: Microbiology 09/04/21 12:55 Nasal Secretion SARS-CoV-2 Antigen (Rapid) - Final D/C Instructions Discharge Activity: Return to Normal Activity Weight Bearing Status: Weight bearing as tolerated Call your doctor if you observe: Fever of 101 or Higher, Shortness of breath, Dizziness, Swelling in the ankles, Chest pain, Increased palpitations (irregular heartbeat) and Uncontrolled pain Meaningful Use Info Meaningful Use Diagnoses (Choose all that apply): None applicable Discharge Plan Admission Admit Date/Time: 09/01/21 13:41 Primary Reason for Your Visit: debility due to mechanical fall Attending Provider: Maia Wilson Primary Care Provider: Jose Angel Cesar Instructions Patient Instructions: ED Fall Dizziness Weakn Balance Additional Instructions / Restrictions: use knee immobilizer for right patellar fracture when ambulating or statnding. Recommend repeat xrays of knee in 4 weeks Discharge Orders/Prescriptions Prescriptions: New oxycodone 5 mg tablet 5 mg PO Q6H PRN (Reason: pain) 3 Days Qty: 12 RF: 0 Continued aspirin 81 mg tablet,delayed release (DR/EC) 81 mg PO DAILY RF: 0 (DME) pen needle, diabetic [BD Ultra-Fine Jacqueline Pen Needle] 32 gauge x 5/32 needle See Rx Instructions .ROUTE .MEDSUPPLY Qty: 400 RF: 6 (DME) FreeStyle Bernice 2 Sensor Kit See Rx Instructions .ROUTE .MEDSUPPLY Qty: 6 RF: 3 insulin aspart U-100 [Novolog Flexpen U-100 Insulin] 100 unit/mL (3 mL) insulin pen 7 unit subcut .BREAKFAST RF: 0 Lantus Solostar U-100 Insulin 100 unit/mL (3 mL) insulin pen 16 unit subcut DAILY RF: 0 gabapentin 600 mg Tablet 600 mg PO QHS RF: 0 magnesium oxide 400 mg magnesium Tablet 800 mg PO BID RF: 0 gabapentin 100 mg capsule 200 mg PO BID@0800,1400 RF: 0 insulin aspart U-100 [Novolog Flexpen U-100 Insulin] 100 unit/mL (3 mL) insulin pen 4 unit SUBCUT BIDCM RF: 0 (DME) OneTouch Verio test strips Strip See Rx Instructions .ROUTE .MEDSUPPLY Qty: 100 RF: 6 (DME) lancets [OneTouch Delica Plus Lancet] 33 gauge misc See Rx Instructions .ROUTE .MEDSUPPLY Qty: 100 RF: 5 Referrals / Follow Up: Jose Angel Cesar MD [Primary Care Provider] - Within 2 Weeks Randell Guy DO [STAFF PHYSICIAN] - Within 2 Weeks Disposition Disposition (needs filled in before D/C Order can be placed): [facility] Charges/Coding Visit Charges Inpatient E&M: 70127 Disch Hosp
--- NOTE | 2021-09-04 15:19 | PCM.TXEXTCAR ---
Diet 09/04/21 10:56 Diet: Regular - General Type of Dietary Supplement:: [place] Breakfast Is pt able to select menu?: Yes Diet Comments: 4-6 servings CHO/meal Routine Orders/Code Status Enema Type: Fleetz Enema Frequency: Daily PRN Suppository Type: Dulcolax 10mg Suppository Frequency: Daily PRN Wound(s) rt temporal: Wound Type: scab/skin ca Therapies Weight Bearing: Weight bearing as tolerated Physical Therapy: Eval and Treat Occupational Therapy: Eval and Treat Problem/Diagnosis (1) Right patella fracture: Status: Acute (2) Frequent falls: Status: Acute Allergies/Procedures Done in Hospital Allergies No Known Allergies Allergy (Verified 08/11/21 12:45) Procedures: None Type of Care/Length of Stay Estimated LOS: Convalescent Care Less Than 30 days Type of Care Needed: Skilled Rehab Potential: Fair Prognosis: Fair Additional Orders/Day of Discharge Day of Discharge: 09/04/21 Dietary and Speech Recommendations Dietitian Recommendations/Changes: Will change diet to regular, w/ parameters of 4-6 servings of CHO per meal and add [place] Instant Breakfast made w/ whole milk w/ meals d/t malnutrition. Discharge Plan Admission Admit Date/Time: 09/01/21 13:41 Primary Reason for Your Visit: debility due to mechanical fall Attending Provider: Maia Wilson Primary Care Provider: Jose Angel Cesar Instructions Patient Instructions: ED Fall Dizziness Weakn Balance Additional Instructions / Restrictions: use knee immobilizer for right patellar fracture when ambulating or statnding. Recommend repeat xrays of knee in 4 weeks Discharge Orders/Prescriptions Prescriptions: New oxycodone 5 mg tablet 5 mg PO Q6H PRN (Reason: pain) 3 Days Qty: 12 RF: 0 Continued aspirin 81 mg tablet,delayed release (DR/EC) 81 mg PO DAILY RF: 0 (DME) pen needle, diabetic [BD Ultra-Fine Jacqueline Pen Needle] 32 gauge x 5/32 needle See Rx Instructions .ROUTE .MEDSUPPLY Qty: 400 RF: 6 (DME) FreeStyle Bernice 2 Sensor Kit See Rx Instructions .ROUTE .MEDSUPPLY Qty: 6 RF: 3 insulin aspart U-100 [Novolog Flexpen U-100 Insulin] 100 unit/mL (3 mL) insulin pen 7 unit subcut .BREAKFAST RF: 0 Lantus Solostar U-100 Insulin 100 unit/mL (3 mL) insulin pen 16 unit subcut DAILY RF: 0 gabapentin 600 mg Tablet 600 mg PO QHS RF: 0 magnesium oxide 400 mg magnesium Tablet 800 mg PO BID RF: 0 gabapentin 100 mg capsule 200 mg PO BID@0800,1400 RF: 0 insulin aspart U-100 [Novolog Flexpen U-100 Insulin] 100 unit/mL (3 mL) insulin pen 4 unit SUBCUT BIDCM RF: 0 (DME) OneTouch Verio test strips Strip See Rx Instructions .ROUTE .MEDSUPPLY Qty: 100 RF: 6 (DME) lancets [OneTouch Delica Plus Lancet] 33 gauge misc See Rx Instructions .ROUTE .MEDSUPPLY Qty: 100 RF: 5 Referrals / Follow Up: Jose Angel Cesar MD [Primary Care Provider] - Within 2 Weeks Randell Guy DO [STAFF PHYSICIAN] - Within 2 Weeks Disposition Disposition (needs filled in before D/C Order can be placed): Assisted Facility
--- NOTE | 2021-09-04 15:47 | NURSING ---
REPORT CALLED TO OSEI BRUNO MONUMENT.
--- NOTE | 2021-09-04 16:00 | CASEMGMT ---
Social Work Note SW updated that pt's Carmen is requesting to speak to this worker and it is important. SW in to speak with Carmen and pt. Carmen states pt's daughter went to [facility] and the room was not that clean. Carmen states that [facility] stated they still need to clean it up and they didn't even know the time pt was coming. SW informed Carmen that they do not know the time as this worker hasn't arranged transportation yet as paperwork is needed. Carmen asked about pt going to [facility] as it is close to their daughter. SW informed Carmen and pt that medically pt is ready for discharge and discharge is in for today and there is no way this worker could find another facility for pt at this time. SW informed Carmen that it is 4:00pm and admissions may be gone already. SW informed Carmen that pt can discharge to [facility] this weekend and if they do not like [facility], they can request a different SNF. Pt and Carmen state understanding, agreeable to [facility]. Plan: [facility] skilled today Asha Swain USED CAR SALES MANAGER, LAUNDRY OPERATOR FINISHING
[2021-09-04 16:36] LABS: Bedside Glucose 198 mg/dL (74-106)
--- NOTE | 2021-09-04 17:30 | CASEMGMT ---
Social Work Note Discharge paperwork is completed. PAS/RR completed. CHEMO faxed completed discharge paperwork to [facility] including transfer to extended care facility, signed medication list, any scripts, COVID test/tool, and PAS/RR and PAS/RR results. Original in SNF folder and copy on pt's chart. CHEMO spoke with RN, pt to transport via cot. SW accessed trip assist and arranged transportation via cot for 9:30pm as this is the earliest physician's can transport pt. SW in to speak with pt and Carmen. SW updated pt and Carmen that the earliest transportation can transport is 9:30pm tonight. Pt and Carmen state understanding. SW updated RN on transportation time. CHEMO placed a call to [facility] and left message to update her on transportation time. CHEMO also emailed Griselda to update on transportation time. CHEMO also attempted to call [facility] and update RN on transportation but there was no answer. Plan: [facility] skilled under PAS/RR level with Physician's transporting pt via cot at 9:30pm Asha Swain EMERGENCY SERVICE WORKER, BRUSH HOLDER INSPECTOR
[2021-09-04 20:46] VITALS: BP 122/52; PULSE 61; RESP 18; TEMP 36.8; O2SAT 99
[2021-09-04] MEDS: Gabapentin 600 MG Tablet PO (20:50)
== END 2021-09-04 21:50 ==
LOC: ED 13:49 → MS3 14:01
PROVIDERS: Admitting Provider Internal Medicine; Emergency Provider Emergency Medicine; PCP Family Medicine; Visit Provider Student in an Organized Health Care Education/Training Program
DX: S82.001A Unspecified fracture of right patella, initial encounter for closed fracture (principal); G61.81 Chronic inflammatory demyelinating polyneuritis; E11.40 Type 2 diabetes mellitus with diabetic neuropathy, unspecified; Z79.4 Long term (current) use of insulin; R53.81 Other malaise; E87.1 Hypo-osmolality and hyponatremia; Z79.82 Long term (current) use of aspirin; Y93.9 Activity, unspecified; M62.81 Muscle weakness (generalized); M25.461 Effusion, right knee; Y99.9 Unspecified external cause status; W19.XXXA Unspecified fall, initial encounter; Y92.9 Unspecified place or not applicable; Z79.899 Other long term (current) drug therapy; R29.6 Repeated falls; G89.29 Other chronic pain
CPT/HCPCS: 36415; 73562; 73700; 80048; 80053; 81001; 82962; 83735; 85025; 87426; 96360; 96361; 96372; 97163; 97167; 97530; 97535; 97802; 99218; 99285; J7030; A4216; G0378

== ENCOUNTER → 2021-10-15 | Outpatient (CLI) | payer MEDICARE, SELFPAY ==
[2021-10-15 16:35] LABS: Hematocrit 37.5 % (40-54); Hemoglobin 12.9 g/dL (13.0-16.5); Mean Corp Hgb Conc 34.4 g/dL (32-36); Mean Corpuscular Hgb 31.2 pg (27.0-32.0); Mean Corpuscular Volume 90.8 fL (80-94); Mean Platelet Vol. 8.5 fl (6.2-12.0); Platelet Count 289 K/mm3 (150-450); RBC Distribution Width CV 12.2 % (11.6-14.6); RBC Distribution Width SD 40.6 fl (35.1-43.9); Red Blood Count 4.13 M/mm3 (4.6-6.2); White Blood Count 4.2 K/mm3 (4.4-11.0)
== END | disposition home or self-care (01) ==
LOC: LABSPEC 15:54
PROVIDERS: PCP Family Medicine
DX: Z79.01 Long term (current) use of anticoagulants (principal)
CPT/HCPCS: 85027

== ENCOUNTER → 2021-10-26 | Outpatient (CLI) | payer MEDICARE, SELFPAY ==
[2021-10-26 14:45] LABS: Hematocrit 38.6 % (40-54); Mean Corp Hgb Conc 33.7 g/dL (32-36); Mean Corpuscular Hgb 30.6 pg (27.0-32.0); Mean Corpuscular Volume 90.8 fL (80-94); Mean Platelet Vol. 8.5 fl (6.2-12.0); Platelet Count 288 K/mm3 (150-450); RBC Distribution Width CV 12.2 % (11.6-14.6); RBC Distribution Width SD 40.3 fl (35.1-43.9); Red Blood Count 4.25 M/mm3 (4.6-6.2); White Blood Count 4.8 K/mm3 (4.4-11.0)
--- NOTE | 2021-10-27 14:49 | CASEMGMT ---
AMEYA DUBON received call from Carmne inquire if there is a way to get her Eddie weighed in his wheelchair. She states that they need his weight for his infusions in [place]. AMEYA DUBON returned call to Carmen and she states that she thinks her daughter was able to make an arrangement but was not sure. AMEYA DUBON asked if this AMEYA DUBON could call alexandra Matias to coordinate care. Carmen gave permission to call daughter. AMEYA DUBON called alexandar Matias and voice message left with return contact information. AMEYA DUBON called [facility] and spoke to Cindi. Per Cindi they are able to use wheelchair scale from [facility] to weigh outpatient nutritional patient's and since Eddie is being followed by outpatient nutritional services that they are able to assist with his weights. Cindi states that no appt is needed and to have Carmen call her at [phone]. AMEYA DUBON called and updated Carmen regarding information to have patient weighed at [facility]. AMEYA DUBON inquired that since patient is at home would she like Christel the ethnographer to see patient in the home. Carmen voice yes to have ethnographer visit at home. Carmen would like the RN CM to updated alexandra Matias regarding this information. AMEYA DUBON attempted to call Polly again no answer, will awaiting call back from original message. AMEYA DUBON updated Cindi regarding conversation with Carmen. Cindi states that she will reach out to Carmen to coordinate services.
== END | disposition home or self-care (01) ==
LOC: LABSPEC 13:57
PROVIDERS: PCP Family Medicine
DX: G61.81 Chronic inflammatory demyelinating polyneuritis (principal); Z79.01 Long term (current) use of anticoagulants
CPT/HCPCS: 85027

== ENCOUNTER 2021-11-04 13:35 | Outpatient (RCR) | payer MEDICARE, SELFPAY | END 2021-11-10 23:59 | LOC: DC 13:35 | PROVIDERS: PCP Family Medicine; Visit Provider Family Medicine | DX: E11.40 Type 2 diabetes mellitus with diabetic neuropathy, unspecified (principal); R63.4 Abnormal weight loss; M51.36 Other intervertebral disc degeneration, lumbar region | CPT/HCPCS: 97803 ==

== ENCOUNTER → 2021-11-07 | Outpatient (CLI) | payer MEDICARE, SELFPAY ==
[2021-11-07 12:59] LABS: Hematocrit 41.4 % (40-54); Hemoglobin 13.5 g/dL (13.0-16.5); Mean Corp Hgb Conc 32.6 g/dL (32-36); Mean Corpuscular Hgb 29.8 pg (27.0-32.0); Mean Corpuscular Volume 91.4 fL (80-94); Mean Platelet Vol. 8.2 fl (6.2-12.0); Platelet Count 312 K/mm3 (150-450); RBC Distribution Width CV 12.7 % (11.6-14.6); RBC Distribution Width SD 42.1 fl (35.1-43.9); Red Blood Count 4.53 M/mm3 (4.6-6.2); White Blood Count 3.6 K/mm3 (4.4-11.0)
[2021-11-07 13:22] LABS: ALB/GLOB Ratio 0.5 RATIO (0.9-2.4); AST(SGOT) 20 U/L (15-37); Alanine Aminotransfer ALT/SGPT 28 U/L (16-61); Albumin, Serum 2.7 g/dL (3.2-5.0); Alkaline Phosphatase 64 U/L (45-117); Anion Gap 5 (5-15); BUN 26 mg/dL (7-18); BUN/Creat Ratio 34.2 RATIO (10-20); Calcium,Total 9.4 mg/dL (8.5-10.1); Chloride 99 mmol/L (98-107); Creatinine, Serum 0.76 mg/dL (0.70-1.30); EST Glomerular Filtration Rate 105 mL/min (>60); Est Glom Filt Rate - Afr Amer 127 mL/min (>60); Globulin 5.7 g/dL (2.2-4.2); Glucose 144 mg/dL (74-106); Potassium 4.4 mmol/L (3.5-5.1); Protein, Total 8.4 g/dL (6.4-8.2); Sodium Level 133 mmol/L (136-145); Thyroid Stim Hormone (TSH) 2.59 uIU/mL (0.358-3.74)
== END | disposition home or self-care (01) ==
PROVIDERS: PCP Family Medicine; Visit Provider Nurse Practitioner Family
DX: G61.81 Chronic inflammatory demyelinating polyneuritis (principal)
CPT/HCPCS: 80053; 84443; 85027; 87086; 87088; 87186

== ENCOUNTER → 2021-12-23 | Outpatient (CLI) | payer MEDICARE, SELFPAY ==
[2021-12-23 16:18] LABS: Microalbumin,Random Urine 6.8 mg/L (NO RANGE EST.); Microalbumin:Creatinine Ratio 17.7 mg/g CRE (<30 mg/g CRE)
== END | disposition home or self-care (01) ==
LOC: LABSPEC 13:55
PROVIDERS: PCP Family Medicine; Referring Provider Internal Medicine Endocrinology, Diabetes & Metabolism; Visit Provider Internal Medicine Endocrinology, Diabetes & Metabolism
DX: Z79.4 Long term (current) use of insulin (principal)
CPT/HCPCS: 82043; 82570

== ENCOUNTER → 2021-12-31 | Outpatient (CLI) | payer MEDICARE, SELFPAY ==
[2021-12-31 11:32] LABS: ALB/GLOB Ratio 0.6 RATIO (0.9-2.4); AST(SGOT) 16 U/L (15-37); Alanine Aminotransfer ALT/SGPT 23 U/L (16-61); Albumin, Serum 2.8 g/dL (3.2-5.0); Alkaline Phosphatase 54 U/L (45-117); Anion Gap 8 (5-15); BUN 19 mg/dL (7-18); BUN/Creat Ratio 31.5 RATIO (10-20); Calcium,Total 9.6 mg/dL (8.5-10.1); Chloride 98 mmol/L (98-107); EST Glomerular Filtration Rate 137 mL/min (>60); Est Glom Filt Rate - Afr Amer 165 mL/min (>60); Globulin 4.5 g/dL (2.2-4.2); Glucose 113 mg/dL (74-106); Potassium 4.4 mmol/L (3.5-5.1); Protein, Total 7.3 g/dL (6.4-8.2); Sodium Level 131 mmol/L (136-145)
== END | disposition home or self-care (01) ==
LOC: LABSPEC 10:57
PROVIDERS: PCP Family Medicine; Visit Provider Internal Medicine Endocrinology, Diabetes & Metabolism
DX: E11.42 Type 2 diabetes mellitus with diabetic polyneuropathy (principal); G61.81 Chronic inflammatory demyelinating polyneuritis
CPT/HCPCS: 80053

== ENCOUNTER → 2022-02-10 | Outpatient (CLI) | payer MEDICARE, SELFPAY ==
[2022-02-10 16:28] LABS: ALB/GLOB Ratio 0.9 RATIO (0.9-2.4); AST(SGOT) 17 U/L (15-37); Alanine Aminotransfer ALT/SGPT 29 U/L (16-61); Albumin, Serum 3.1 g/dL (3.2-5.0); Alkaline Phosphatase 56 U/L (45-117); Anion Gap 6 (5-15); BUN 33 mg/dL (7-18); Calcium,Total 9.5 mg/dL (8.5-10.1); Chloride 103 mmol/L (98-107); Creatinine, Serum 0.72 mg/dL (0.70-1.30); EST Glomerular Filtration Rate 112 mL/min (>60); Est Glom Filt Rate - Afr Amer 136 mL/min (>60); Globulin 3.4 g/dL (2.2-4.2); Glucose 111 mg/dL (74-106); Potassium 4.9 mmol/L (3.5-5.1); Protein, Total 6.5 g/dL (6.4-8.2); Sodium Level 136 mmol/L (136-145)
== END | disposition home or self-care (01) ==
LOC: LABSPEC 15:58
PROVIDERS: PCP Family Medicine
DX: R63.4 Abnormal weight loss (principal)
CPT/HCPCS: 80053